=== PATIENT | female | born 1970 | race Caucasian/White ===

== ENCOUNTER 2016-11-07 05:39 | Outpatient (CLI) | payer BC ==
[~2016-11-07] VITALS: Ht 165.1 cm; Wt 83.9 kg
[~2016-11-07 05:39] MED LIST: ACDPT PO; DCS100C PO; DIPH50CA40 PO; FRS325T PO; METH4TAB PO; MV C PO; NF-ESOM40C PO; VALA100033 PO
== END 2016-11-07 13:37 ==
LOC: PREOP 05:39
PROVIDERS: ATTEND Surgery Pediatric Surgery
DX: Z01.818 Encounter for other preprocedural examination (principal); D64.9 Anemia, unspecified

== ENCOUNTER 2016-11-09 10:51 | Day surgery (SDC) | payer BC ==
[~2016-11-09] VITALS: Ht 165.1 cm; Wt 83.9 kg
[2016-11-09 11:00] VITALS: BP 124/84
[2016-11-09] MEDS ORDERED: NALOXONE 0.4 MG/ML 1 ML (NARCAN) VIAL IVP PRN (11:15)
[2016-11-09] MEDS ORDERED: HURRICAINE EXT TUBE (BENZOCAINE) XX PRN (11:15)
[2016-11-09] MEDS ORDERED: FLUMAZENIL (ROMAZICON) 0.1 MG/ML 5 ML VIAL INJ PRN (11:15)
[2016-11-09] MEDS ORDERED: NS IV 500 ML 500 ML IV ONE (11:15)
--- NOTE | 2016-11-09 11:33 | Conscious Sedation/ASA ---
Conscious Sedation Pre-Proced Time Reviewed: 11:30 ASA Class: 2 Airway Mallampati Classification: ([place] appropriate class) I. II. III, IV Lungs Heart ASA score ASA 1: a normal healthy patient ASA 2: a patient with a mild systemic disease (mid diabetes, controlled hypertension, obesity ASA 3: a patient with a severe systemic disease that limits activity (angina , COPD, prior Myocardial infarction) ASA 4: a patient with an incapacitating disease that is a constant threat to life (CHF, renal failure) ASA 5: a moribund patient not expected to survive 24 hrs. (ruptured aneurysm) ASA 6: a declared brain patient whose organs are being harvested. For emergent operations, add the letter E after the classification Grade 2 Sedation Plan: Analgesia, Amnesia, Plan communicated to team members, Discussed options with patient/fam, Discussed risks with patient/fam Note The patient is an appropriate candidate to undergo the planned procedure, sedation, and anesthesia. The patient immediately re-assessed prior to indication. KALEB FLORES MD Nov 09, 2016 11:33 am
--- NOTE | 2016-11-09 11:33 | Progress Note-Pre Operative ---
Pre-Operative Progress Note H&P Reviewed The H&P was reviewed, patient examined and no changes noted. Date H&P Reviewed: Nov 09, 2016 Time H&P Reviewed: 11:30 Pre-Operative Diagnosis: PUD, anemia KALEB FLORES MD Nov 09, 2016 11:33 am
[2016-11-09] MEDS ORDERED: ACETAMINOPHEN 325 MG TABLET/CAPLET (TYLENOL) PO PRN (11:45)
[2016-11-09] MEDS ORDERED: HYDROcodone/APAP 5 MG/325 MG (LORTAB) TAB PO PRN (11:45)
[2016-11-09] MEDS ORDERED: ONDANSETRON 4 MG/2 ML (SDV) Z0FRAN IV PRN (11:45)
[2016-11-09] MEDS ORDERED: morphine INJ 10 MG/ML 1ML (SYR OR VIAL) IV PRN (11:45)
[2016-11-09] MEDS ORDERED: MIDAZOLAM 2 MG/2 ML (VERSED) VIAL ONE ×4 (11:52→11:53)
[2016-11-09] MEDS ORDERED: fentaNYL INJECTION 100 MCG/2 ML AMP ONE ×2 (11:53)
[2016-11-09] MEDS ORDERED: HURRICAINE EXT TUBE (BENZOCAINE) ONE (11:53)
[2016-11-09] MEDS ORDERED: LIDOCAINE JELLY 2% (XYLOCAINE) 5 ML TUBE ONE (11:54)
[2016-11-09] MEDS: fentaNYL INJECTION 100 MCG/2 ML AMP IVP PRN ×4 (12:17→12:45)
[2016-11-09] MEDS: MIDAZOLAM 2 MG/2 ML (VERSED) VIAL IVP PRN ×4 (12:18→12:50)
--- NOTE | 2016-11-09 13:10 | Progress Note-Post Operative ---
Post-Operative Progess Note Surgeon (s)/Tiller Man (s) Surgeon KALEB FLORES MD Tiller Man: none Pre-Operative Diagnosis PUD, anemia Post-Operative Diagnosis reflux esophagitis(class B), small HH(1cm), moderate diffuse gastrtitis with multiple small polyps. chronic stage 2 ext and int hemorrhoids. Post-Op Procedure Note Date of Procedure: Nov 09, 2016 Name of Procedure Performed: EGD with bx. Colonoscopy. Description of the Procedure: EGD with bx. Colonoscopy. Findings of the Procedure . Anesthesia Type CS Estimated blood loss (mL): minimal Specimen(s) collected/removed GE jxn, gastric polyp. KALEB FLORES MD Nov 09, 2016 1:10 pm
--- NOTE | 2016-11-09 13:11 | Discharge Inst-Surgical ---
D/C Lap Instructions-SANDRA Follow Up PRN Activity as tolerated High Fiber Diet 25g or more per day Avoid Alcohol, Caffeine, Spicy [place] and Acid foods. Drink 64 fluid oz or more of fluids per day. Symptoms to Report: Fever over 101 degree F, Nausea/Vomiting If any problems/questions: Contact your physician or go to Emergency Room KALEB FLORES MD Nov 09, 2016 1:11 pm
[2016-11-09 13:20] VITALS: BP 103/75
[2016-11-09 13:55] VITALS: BP 113/86
[2016-11-09 14:13] VITALS: BP 113/86
--- NOTE | 2016-11-12 00:13 | PROCEDURE REPORT ---
PROCEDURE PHYSICIAN: KALEB DEGROOT DATE OF PROCEDURE: 11/09/2016 PRIMARY CARE PHYSICIAN: Dr. Diandra Puri PREOPERATIVE DIAGNOSIS: Deficiency and vitamin B12 deficiency anemia. POSTOPERATIVE DIAGNOSES: 1. Reflux esophagitis, class B. 2. Small hiatal hernia 1 cm in size. 3. Moderate gastritis with multiple, very small hyperplastic appearing polyps of the stomach, less than 2 mm in size. 4. Chronic stage II external and internal hemorrhoids. PROCEDURE: 1. EGD with biopsy. 2. Colonoscopy. SURGEON: Dr. Degroot. ANESTHESIA: Conscious sedation. ESTIMATED BLOOD LOSS: Minimal. FINDINGS: EGD: 1. Reflux esophagitis, class B. 2. Small hiatal hernia 1 cm in size. 3. Moderate severity gastritis with multiple small gastric polyps, each less than 2 mm in size which may indicate a form of atrophic gastritis and vitamin B12 deficiency. 4. The pylorus and duodenum appeared normal. COLONOSCOPY: 1. Chronic stage II external and internal hemorrhoids, not actively edematous nor inflamed and no bleeding. 2. The remainder of the rectum and colon were normal. There were no mucosal inflammatory changes, as well as no active bleeding. DISPOSITION: The patient tolerated the procedure well. Ms. Kaylynn Eller is a 46-year-old female referred over to us for iron deficiency, as well as vitamin B12 deficiency anemia. She reports that she has had this issue for the past 4 years. Lab work was done 10/19/2016, which showed a hemoglobin of 9.8 and a hematocrit of 33. She has had multiple laboratory studies which have shown decreased iron as well as vitamin B12. Upon further questioning, she reports a long-standing history of constipation with hard, well-formed stools. She does not report any red blood per rectum nor any dark tarry stools. She does have a history of peptic ulcer disease and gastroesophageal reflux disease and has been on Nexium; however, she states that her symptoms have worsened in the past year. PROCEDURE: The patient was brought to the endoscopy suite, laid in the left lateral decubitus position with the head slightly elevated. After adequate IV pain and sedative medications and conscious sedation anesthesia, the mouthpiece was applied. The endoscope was placed in the mouth, visualizing the pharynx and hypopharyngeal region. Vocal cords, epiglottis and vallecula identified and appeared to be normal. The endoscope was then gently intubated into the esophageal opening and the esophagus insufflated. The endoscope was then advanced through the first, second, and 3rd portions of the esophagus. At the level of the GE junction, a reflux esophagitis, class B identified. There were no ulcers or strictures identified in this region. A biopsy was taken with forceps with visualization of good hemostasis. The endoscope was then advanced into the stomach and endoscope retroflexed visualizing a small hiatal hernia, approximately 1 cm in size. There was a moderate severity gastritis. There were multiple small gastric polyps each less than 2 mm in size. This may indicate a form of atrophic gastritis. A biopsy was taken of stomach body polyp with forceps with visualization of good hemostasis. The endoscope was then advanced through the pylorus and first and second portions of the duodenum which appeared normal with no distal obstructions. The endoscope was then slowly withdrawn while taking a second look and suctioning of residual air with no additional findings. The patient tolerated this portion the procedure well. We will recommend medical management with a proper lifestyle and diet accommodation including smaller, more frequent meals, avoidance of eating at night, as well as head elevation while laying supine. She also needs to avoid caffeinated beverages, spicy, greasy and acidic foods. The importance of weight management were also explained to the patient. Even though she does have symptoms, a trial of discontinuing acid reduction pharmaceutical medical therapy may improve her symptoms along with medical management. Under the same conscious sedation anesthesia, we then proceeded with the colonoscopy portion of the procedure. A digital rectal examination was performed, which revealed chronic, stage II external and internal hemorrhoids, not actively edematous nor inflamed and no bleeding. Normal sphincter tone was felt and there were no palpable masses. The endoscope was then intubated into the anus and the rectum gently insufflated. The endoscope was then advanced through the valves of Flynn of the rectum with no polyps or any neoplasms identified. There were no mucosal inflammatory changes to indicate any active colitis. The endoscope was then advanced through the sigmoid colon where no diverticula identified. We then proceeded through the remainder of the descending, transverse, and ascending colon of the cecum. These segments were normal as well. There were no polyps or any neoplasms, as well as no mucosal inflammatory changes or any active bleeding sites identified. The endoscope was then slowly withdrawn while taking a second look and suctioning of residual air with no additional findings. The patient tolerated the procedure well. We will have her continue with medical management with a high fiber diet with at least 25 grams of fiber per day, as well as at least 64 fluid ounces of water daily to promote soft stools on a daily basis. Job ID: [id number] Dictated Date: 11/09/2016 13:06:56 Senior Care Specialist Date: 11/12/2016 00:03:51 / cem
--- OUTSIDE RECORDS SUMMARY | 2016-12-02 08:08 | XMS REPORT ---
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
--- OUTSIDE RECORDS SUMMARY | 2016-12-02 08:08 | XMS REPORT ---
Author LOREN Mack eClinicalWorks Address Unknown Phone Unavailable Care Team Providers Care Rand Butting Machine Operator Name Role Phone LOREN MARCOS Unavailable Allergies [...] patient &/family, 30 minutes, established patient CPT-4 46168 Apr 09, 2016 Results No Known Results Summary Purpose eClinicalWorks Submission
--- OUTSIDE RECORDS SUMMARY | 2016-12-02 08:09 | XMS REPORT | Continuity of Care Document ---
Author Author [facility] Address Unknown Phone Unavailable Allergies Active Description Code Type Severity Reaction Onset Reported/Identified Relationship to Patient Clinical Status Yes No Known Drug Allergies [id number] Drug Allergy Mild N/A 04/30/2008 Medications Problems Date Dx Coded Attending Type Code Diagnosis Diagnosed By 09/28/2010 Ot 285.9 ANEMIA NOS 09/28/2010 Ot 354.0 CARPAL TUNNEL SYNDROME 09/28/2010 Ot 616.10 VAGINITIS NOS 09/28/2010 Ot 646.61 INFECTION-DELIVERED 09/28/2010 Ot 648.21 ANEMIA-DELIVERED 09/28/2010 Ot 648.91 OTH CURR COND-DELIVERED 09/28/2010 Ot 654.21 PREV DELIVRY W/ OR W/O MENT ANT 09/28/2010 Ot 659.61 ELD MULTIGRAVIDA DEL W MENTION OF ANTEPA 09/28/2010 Ot V27.0 DELIVER-SINGLE LIVEBORN 03/07/2012 309.28 AD ADJ D/O W ANX DEP MOOD 03/07/2012 309.28 AD ADJ D/O W ANX DEP MOOD 03/07/2012 VARINDER DUMAS DO 309.28 AD ADJ D/O W ANX DEP MOOD 03/07/2012 VARINDER DUMAS DO 309.28 AD ADJ D/O W ANX DEP MOOD 05/17/2012 V04.81 FLU DX (3 YRS AND ABOVE, IM) 05/17/2012 V04.81 FLU DX (3 YRS AND ABOVE, IM) 05/17/2012 VARINDER DUMAS DO V04.81 FLU DX (3 YRS AND ABOVE, IM) 05/17/2012 VARINDER DUMAS DO V04.81 FLU DX (3 YRS AND ABOVE, IM) 12/20/2013 BRINDA KHANNA MD Ot 351.0 [place] 12/20/2013 BRINDA KHANNA MD Ot 782.0 SKIN SENSATION DISTURB 06/29/2014 Ot V76.12 06/29/2014 Ot 649.63 06/29/2014 Ot 654.23 06/29/2014 Ot V72.83 06/29/2014 Ot V74.8 06/29/2014 Ot 782.0 06/29/2014 Ot 784.0 06/29/2014 Ot 793.82 06/29/2014 Ot V76.12 06/29/2014 Ot 611.0 06/29/2014 Ot 793.80 06/29/2014 Ot V67.9 06/29/2014 JACKIE NARAYAN DO Ot 793.89 06/29/2014 Ot 341.8 06/29/2014 Ot 346.11 06/29/2014 Ot 348.0 06/29/2014 JACKIE NARAYAN DO Ot V76.12 11/29/2014 CA FIELDS Ot V76.12 12/31/2014 CA FIELDS Ot V76.12 12/31/2014 CA FIELDS Ot 795.09 11/25/2015 Ot 654.23 PREV DELIVERY, ANTEPARTUM COND 11/25/2015 Ot V72.83 EXAM PRE-OPERATIVE NEC 11/25/2015 Ot V74.8 SCREEN-BACTERIAL DIS NEC 11/25/2015 Ot 782.0 SKIN SENSATION DISTURB 11/25/2015 Ot 784.0 HEADACHE 11/25/2015 Ot 793.82 INCONCLUSIVE MAMMOGRAM 11/25/2015 Ot V76.12 OTH SCREEN MAMMO-MALIGN NEOPLASM OF LUCY 11/25/2015 Ot 611.0 INFLAM DISEASE OF BREAST 11/25/2015 Ot 793.80 UNSPEC ABNORMAL MAMMOGRAM 11/25/2015 Ot V67.9 FOLLOW-UP EXAM NOS 11/25/2015 JACKIE NARAYAN DO Ot 793.89 OTH (ABN) FINDINGS ON RADIOLOGICAL EXAMI 11/25/2015 Ot 341.8 BIAS MACHINE OPERATOR DEMYELINATION NEC 11/25/2015 Ot 346.11 MGRN W/OUT AURA W INTRACTABLE MGRN W/O S 11/25/2015 Ot 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 11/25/2015 JACKIE NARAYAN DO Ot V76.12 OTH SCREEN MAMMO-MALIGN NEOPLASM OF LUCY 11/25/2015 CA FIELDS Ot V76.12 OTH SCREEN MAMMO-MALIGN NEOPLASM OF LUCY 11/25/2015 CA FIELDS Ot 795.09 OTHER ABNORMAL PAPANICOLAOU SMEAR OF CER 11/28/2015 NARAYANJACKIE Lau DO Ot Z12.31 ENCNTR SCREEN MAMMOGRAM FOR MALIGNANT NE 12/08/2015 NARAYANJACKIE Lau DO Ot Z12.31 ENCNTR SCREEN MAMMOGRAM FOR MALIGNANT NE 10/11/2016 Ot 782.0 SKIN SENSATION DISTURB 10/11/2016 Ot 784.0 HEADACHE 10/11/2016 Ot 793.82 INCONCLUSIVE MAMMOGRAM 10/11/2016 Ot V76.12 OTH SCREEN MAMMO-MALIGN NEOPLASM OF LUCY 10/11/2016 Ot 611.0 INFLAM DISEASE OF BREAST 10/11/2016 Ot 793.80 UNSPEC ABNORMAL MAMMOGRAM 10/11/2016 Ot V67.9 FOLLOW-UP EXAM NOS 10/11/2016 JACKIE NARAYAN DO Ot 793.89 OTH (ABN) FINDINGS ON RADIOLOGICAL EXAMI 10/11/2016 Ot 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 MACHINE OPERATOR DEMYELINATION NEC 10/11/2016 Ot 346.11 MGRN W/OUT AURA W INTRACTABLE MGRN W/O S 10/11/2016 Ot 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 10/11/2016 JACKIE NARAYAN DO Ot V76.12 OTH SCREEN MAMMO-MALIGN NEOPLASM OF LUCY 10/11/2016 CA FIELDS Ot V76.12 OTH SCREEN MAMMO-MALIGN NEOPLASM OF LUCY 10/11/2016 CA FIELDS Ot 795.09 OTHER ABNORMAL PAPANICOLAOU SMEAR OF CER 10/11/2016 JACKIE NARAYAN DO Ot Z12.31 ENCNTR SCREEN MAMMOGRAM FOR MALIGNANT NE 11/07/2016 KALEB FLORES MD Ot D64.9 ANEMIA, UNSPECIFIED 11/07/2016 KALEB FLORES MD Ot Z01.818 ENCOUNTER FOR OTHER PREPROCEDURAL EXAMIN 11/07/2016 KALEB FLORES MD Ot D64.9 ANEMIA, UNSPECIFIED 11/07/2016 KALEB FLORES MD Ot Z01.818 ENCOUNTER FOR OTHER PREPROCEDURAL EXAMIN 11/09/2016 Ot 782.0 SKIN SENSATION DISTURB 11/09/2016 Ot 784.0 HEADACHE 11/09/2016 Ot 793.82 INCONCLUSIVE MAMMOGRAM 11/09/2016 Ot V76.12 OTH SCREEN MAMMO-MALIGN NEOPLASM OF LUCY 11/09/2016 Ot 611.0 INFLAM DISEASE OF BREAST 11/09/2016 Ot 793.80 UNSPEC ABNORMAL MAMMOGRAM 11/09/2016 Ot V67.9 FOLLOW-UP EXAM NOS 11/09/2016 JACKIE NARAYAN DO Ot 793.89 OTH (ABN) FINDINGS ON RADIOLOGICAL EXAMI 11/09/2016 Ot 341.8 BIAS MACHINE OPERATOR DEMYELINATION NEC 11/09/2016 Ot 346.11 MGRN W/OUT AURA W INTRACTABLE MGRN W/O S 11/09/2016 Ot 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 11/09/2016 JACKIE NARAYAN DO Ot V76.12 OTH SCREEN MAMMO-MALIGN NEOPLASM OF LUCY 11/09/2016 DONNIE CACee REYES Ot V76.12 OTH SCREEN MAMMO-MALIGN NEOPLASM OF LUCY 11/09/2016 CA FIELDS HAIR OR BEAUTY SALON ASSISTANT Ot 795.09 OTHER ABNORMAL PAPANICOLAOU SMEAR OF CER 11/09/2016 JAKCIE NARAYAN DO Ot Z12.31 ENCNTR SCREEN MAMMOGRAM FOR MALIGNANT NE 11/09/2016 ROYA BUSTILLOS MD Ot D50.9 IRON DEFICIENCY ANEMIA, UNSPECIFIED 11/09/2016 ROYA BUSTILLOS MD Ot E66.9 OBESITY, UNSPECIFIED 11/09/2016 ROYA BUSTILLOS MD Ot K90.9 INTESTINAL MALABSORPTION, UNSPECIFIED 11/09/2016 ROYA BUSTILLOS MD Ot Z68.31 BODY MASS INDEX (BMI) 31.0-31.9, ADULT 11/09/2016 KALEB FLORES MD, Ot D50.9 IRON DEFICIENCY ANEMIA, UNSPECIFIED 11/09/2016 KALEB FLORES MD Ot D51.3 OTHER DIETARY VITAMIN B12 DEFICIENCY ANE 11/09/2016 KALEB FLORES MD Ot K21.0 GASTRO-ESOPHAGEAL REFLUX DISEASE WITH ES 11/09/2016 KALEB FLORES MD Ot K29.70 GASTRITIS, UNSPECIFIED, WITHOUT BLEEDING 11/09/2016 KALEB FLORES MD Ot K31.7 POLYP OF STOMACH AND DUODENUM 11/09/2016 KALEB LFORES MD Ot K44.9 DIAPHRAGMATIC HERNIA WITHOUT OBSTRUCTION 11/09/2016 KALEB FLORES MD Ot K59.00 CONSTIPATION, UNSPECIFIED 11/09/2016 KALEB FLORES MD, Ot K64.1 SECOND DEGREE HEMORRHOIDS Procedures Code Description Performed By Performed On 74.1 09/26/2010 16919 INDIV PSYTX 45/50 MIN 07/11/2012 26106 PSYTX PT&/FAMILY 45 MINUTES 10/31/2012 Results Test Result Range Urine beta human chorionic gonadotropin (hCG) measurement - 11/09/16 11:00 Urine beta human chorionic gonadotropin (hCG) measurement NEGATIVE NEGATIVE Encounters ACCT No. Visit Date/Time Discharge Status Pt. Type Provider Facility Loc./Unit Complaint [id number] 05/13/2014 18:28:00 05/13/2014 23: 59:59 CLS Outpatient VARINDER DUMAS DO [id number] 05/09/2013 08:59:00 05/09/2013 23: 59:59 CLS Outpatient VARINDER DUMAS DO [id number] 10/31/2012 08:56:00 10/31/2012 23: 59:59 CLS Outpatient [id number] 07/11/2012 09:57:00 07/11/2012 23: 59:59 CLS Outpatient
--- OUTSIDE RECORDS SUMMARY | 2016-12-02 08:09 | XMS REPORT ---
Author Author LOREN MARCOS eClinicalWorks Address Unknown Phone Unavailable Care Team Providers Care Examination Scorer Name Role Phone LOREN MARCOS CP Unavailable Allergies No Known Allergies Problems Problem Type Condition Code Onset Dates Condition Status Problem Adjustment disorder with mixed anxiety and depressed mood 309.28 Active Assessment Adjustment disorder with mixed anxiety and depressed mood 309.28 Active Problem Need for prophylactic vaccination and inoculation, Influenza V04.81 Active Medications No Known Medications Procedures Procedure Coding System Code Date Psych diagnostic evaluation, established patient CPT-4 11791 Jul 05, 2015 Results No Known Results Summary Purpose ShotlstinicalCognitum Submission
== END 2016-11-09 14:05 | disposition home or self-care (01) ==
LOC: DELPENDDIS → ENDO 10:51
PROVIDERS: ATTEND Surgery Pediatric Surgery
DX: K21.0 Gastro-esophageal reflux disease with esophagitis (principal); K44.9 Diaphragmatic hernia without obstruction or gangrene; K29.70 Gastritis, unspecified, without bleeding; K31.7 Polyp of stomach and duodenum; K64.1 Second degree hemorrhoids; K59.00 Constipation, unspecified; D50.9 Iron deficiency anemia, unspecified; D51.3 Other dietary vitamin B12 deficiency anemia
CPT/HCPCS: 84703; 88305

== ENCOUNTER 2016-11-16 10:21 | Outpatient (RCR) | payer BC ==
--- OUTSIDE RECORDS SUMMARY | 2016-10-11 11:40 | XMS REPORT ---
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
[2016-10-11 12:04] LABS: BASOPHILS % (AUTO) 0 % (0-10); EOSINOPHILS # (AUTO) 0.1 10^3/uL (0.0-0.3); EOSINOPHILS % (AUTO) 1 % (0-10); LYMPHOCYTES # (AUTO) 1.3 X 10^3 (1.0-4.0); LYMPHOCYTES % (AUTO) 28 % (12-44); MEAN CORPUSCULAR HEMOGLOBIN 21 PG (25-34); MEAN CORPUSCULAR HGB CONC 31 G/DL (32-36); MEAN CORPUSCULAR VOLUME 67 FL (80-99); MEAN PLATELET VOLUME 9.7 FL (7.4-10.4); MONOCYTES # (AUTO) 0.4 X 10^3 (0.0-1.0); MONOCYTES % (AUTO) 8 % (0-12); NEUTROPHILS # (AUTO) 2.9 X 10^3 (1.8-7.8); NEUTROPHILS % (AUTO) 63 % (42-75); PLATELET COUNT 294 10^3/uL (130-400); RED BLOOD COUNT 4.74 10^6/uL (4.35-5.85); RED CELL DISTRIBUTION WIDTH 18.9 % (10.0-14.5); WHITE BLOOD COUNT 4.6 10^3/uL (4.3-11.0)
[2016-10-11 16:36] LABS: %SAT TOTAL IRON BINDING CAPIC 4 % (15-50); TIBC 446 ug/dL (280-380)
[2016-10-12 08:03] LABS: UIBC 428 ug/dL (55-450)
[2016-10-19 11:38] LABS: BASOPHILS % (AUTO) 1 % (0-10); EOSINOPHILS # (AUTO) 0.1 10^3/uL (0.0-0.3); EOSINOPHILS % (AUTO) 1 % (0-10); LYMPHOCYTES # (AUTO) 1.7 X 10^3 (1.0-4.0); LYMPHOCYTES % (AUTO) 30 % (12-44); MEAN CORPUSCULAR HEMOGLOBIN 20 PG (25-34); MEAN CORPUSCULAR HGB CONC 30 G/DL (32-36); MEAN CORPUSCULAR VOLUME 67 FL (80-99); MEAN PLATELET VOLUME 10.3 FL (7.4-10.4); MONOCYTES # (AUTO) 0.5 X 10^3 (0.0-1.0); MONOCYTES % (AUTO) 9 % (0-12); NEUTROPHILS # (AUTO) 3.4 X 10^3 (1.8-7.8); NEUTROPHILS % (AUTO) 59 % (42-75); PLATELET COUNT 254 10^3/uL (130-400); RED BLOOD COUNT 4.82 10^6/uL (4.35-5.85); RED CELL DISTRIBUTION WIDTH 18.6 % (10.0-14.5); WHITE BLOOD COUNT 5.7 10^3/uL (4.3-11.0)
[2016-10-26 09:56] LABS: BILIRUBIN,URINE NEGATIVE (NEGATIVE); KETONES,URINE NEGATIVE (NEGATIVE); LEUKOCYTE ESTERASE ,URINE NEGATIVE (NEGATIVE); NITRITE,URINE NEGATIVE (NEGATIVE); PH,URINE 8 (5-9); PROTEIN,URINE NEGATIVE (NEGATIVE); UROBILINOGEN,URINE NORMAL (NORMAL)
[2016-11-13 10:15] LABS: HEMOGLOBIN ELECTROPHERESIS L-17-0002914
[~2016-11-16 10:21] MED LIST changes: +FERRIC CARBOXYMALTOSE (CANCER) 750 MG in NS (IVPB) CANCER CENTER 250 ML IV SCH; +FERRIC CARBOXYMALTOSE 750 MG/15 ML (CANCER CTR) IV SCH
[2016-11-16 10:40] LABS: BASOPHILS # (AUTO) 0.1 10^3/uL (0.0-0.1); BASOPHILS % (AUTO) 1 % (0-10); EOSINOPHILS # (AUTO) 0.1 10^3/uL (0.0-0.3); EOSINOPHILS % (AUTO) 1 % (0-10); LYMPHOCYTES # (AUTO) 1.4 X 10^3 (1.0-4.0); LYMPHOCYTES % (AUTO) 28 % (12-44); MEAN CORPUSCULAR HEMOGLOBIN 26 PG (25-34); MEAN CORPUSCULAR HGB CONC 33 G/DL (32-36); MEAN CORPUSCULAR VOLUME 79 FL (80-99); MONOCYTES # (AUTO) 0.4 X 10^3 (0.0-1.0); MONOCYTES % (AUTO) 8 % (0-12); NEUTROPHILS # (AUTO) 3.2 X 10^3 (1.8-7.8); NEUTROPHILS % (AUTO) 62 % (42-75); PLATELET COUNT 179 10^3/uL (130-400); RED BLOOD COUNT 5.24 10^6/uL (4.35-5.85); WHITE BLOOD COUNT 5.1 10^3/uL (4.3-11.0)
[2016-11-16 11:00] LABS: ALANINE AMINOTRANSFERASE 21 U/L (0-55); ALBUMIN 4.2 G/DL (3.2-4.5); ANION GAP 7 MMOL/L (5-14); ASPARTATE AMINO TRANSFERASE 14 U/L (5-34); BILIRUBIN,TOTAL 1.3 MG/DL (0.1-1.0); BLOOD UREA NITROGEN 9 MG/DL (7-18); BUN/CREATININE RATIO 12; CALCIUM 9.3 MG/DL (8.5-10.1); CARBON DIOXIDE 25 MMOL/L (21-32); CHLORIDE 109 MMOL/L (98-107); CREATININE SERUM 0.73 MG/DL (0.60-1.30); GFR ESTIMATED > 60; GLUCOSE 83 MG/DL (70-105); POTASSIUM 4.3 MMOL/L (3.6-5.0); SODIUM 141 MMOL/L (135-145); TOTAL PROTEIN 6.7 G/DL (6.4-8.2)
[2016-11-16 11:22] LABS: THYROID STIMULATING HORMONE 1.07 UIU/ML (0.35-4.94)
[2016-11-16 13:34] LABS: BILIRUBIN,DIRECT 0.4 MG/DL (0.0-0.3)
== END 2017-01-09 | disposition home or self-care (01) ==
LOC: ONC 10:21
PROVIDERS: ATTEND Internal Medicine Hematology & Oncology
DX: D50.9 Iron deficiency anemia, unspecified (principal); K90.9 Intestinal malabsorption, unspecified; E66.9 Obesity, unspecified; Z68.31 Body mass index [BMI] 31.0-31.9, adult
CPT/HCPCS: 36415; 80053; 81000; 82248; 82274; 82728; 83020; 83540; 84439; 84443; 85025; 96365; 99213; 99214

== ENCOUNTER → 2017-01-18 | Outpatient (CLI) | payer BC ==
[~2017-01-18] MED LIST changes: -FERRIC CARBOXYMALTOSE (CANCER) 750 MG in NS (IVPB) CANCER CENTER 250 ML IV SCH; -FERRIC CARBOXYMALTOSE 750 MG/15 ML (CANCER CTR) IV SCH
--- NOTE | 2017-01-21 13:39 | Diagnostic Imaging Report ---
Bilateral screening mammogram. The current study was also evaluated with a Computer Aided Detection (CAD) system. INDICATION: Screening. No current complaints stated on the questionnaire. COMPARISON: 11/25/15 FINDINGS: The breasts are composed of scattered fibroglandular densities. There are scattered benign-appearing calcifications. Allowing for technique and positional differences, no suspicious change is seen. IMPRESSION: No significant change. ACR BI-RADS Category 2: Benign findings. Result letter will be mailed to the patient. Note: At least 10% of breast cancer is not imaged by mammography. Dictated by: Dictated on workstation # [id number]
== END | disposition home or self-care (01) ==
LOC: RAD 10:34
PROVIDERS: ATTEND Obstetrics & Gynecology
DX: Z12.31 Encounter for screening mammogram for malignant neoplasm of breast (principal)
CPT/HCPCS: 77067

== ENCOUNTER 2017-02-21 08:51 | Outpatient (RCR) | payer BC ==
[2017-02-15 09:56] LABS: BASOPHILS % (AUTO) 1 % (0-10); EOSINOPHILS # (AUTO) 0.1 10^3/uL (0.0-0.3); EOSINOPHILS % (AUTO) 2 % (0-10); LYMPHOCYTES # (AUTO) 1.8 X 10^3 (1.0-4.0); LYMPHOCYTES % (AUTO) 31 % (12-44); MEAN CORPUSCULAR HEMOGLOBIN 31 PG (25-34); MEAN CORPUSCULAR HGB CONC 34 G/DL (32-36); MEAN CORPUSCULAR VOLUME 89 FL (80-99); MEAN PLATELET VOLUME 9.7 FL (7.4-10.4); MONOCYTES # (AUTO) 0.4 X 10^3 (0.0-1.0); MONOCYTES % (AUTO) 8 % (0-12); NEUTROPHILS # (AUTO) 3.5 X 10^3 (1.8-7.8); NEUTROPHILS % (AUTO) 60 % (42-75); PLATELET COUNT 170 10^3/uL (130-400); RED BLOOD COUNT 4.81 10^6/uL (4.35-5.85); RED CELL DISTRIBUTION WIDTH 14.8 % (10.0-14.5); WHITE BLOOD COUNT 5.8 10^3/uL (4.3-11.0)
[2017-02-15 10:17] LABS: ALANINE AMINOTRANSFERASE 24 U/L (0-55); ALBUMIN 4.3 GM/DL (3.2-4.5); ANION GAP 10 MMOL/L (5-14); ASPARTATE AMINO TRANSFERASE 18 U/L (5-34); BILIRUBIN,TOTAL 1.7 MG/DL (0.1-1.0); BLOOD UREA NITROGEN 11 MG/DL (7-18); BUN/CREATININE RATIO 14; CALCIUM 9.5 MG/DL (8.5-10.1); CARBON DIOXIDE 21 MMOL/L (21-32); CHLORIDE 106 MMOL/L (98-107); CREATININE SERUM 0.78 MG/DL (0.60-1.30); GFR ESTIMATED > 60; GLUCOSE 109 MG/DL (70-105); POTASSIUM 4.5 MMOL/L (3.6-5.0); SODIUM 137 MMOL/L (135-145); TOTAL PROTEIN 7.1 GM/DL (6.4-8.2)
== END 2017-05-11 | disposition home or self-care (01) ==
LOC: ONC 08:51
PROVIDERS: ATTEND Internal Medicine Hematology & Oncology
DX: D50.9 Iron deficiency anemia, unspecified; Z68.31 Body mass index [BMI] 31.0-31.9, adult; E66.9 Obesity, unspecified; K90.9 Intestinal malabsorption, unspecified
CPT/HCPCS: 36415; 80053; 82728; 83540; 85025; 99213

== ENCOUNTER 2017-06-26 08:54 | Outpatient (RCR) | payer BC ==
[2017-06-12 12:55] LABS: ABSOLUTE RETIC # 46 10e9/L (24-90); BASOPHILS % (AUTO) 1 % (0-10); EOSINOPHILS # (AUTO) 0.1 10^3/uL (0.0-0.3); EOSINOPHILS % (AUTO) 2 % (0-10); HEMATOCRIT 41 % (35-52); HEMOGLOBIN 14.3 G/DL (11.5-16.0); LYMPHOCYTES # (AUTO) 1.9 X 10^3 (1.0-4.0); LYMPHOCYTES % (AUTO) 28 % (12-44); MEAN CORPUSCULAR HEMOGLOBIN 31 PG (25-34); MEAN CORPUSCULAR HGB CONC 35 G/DL (32-36); MEAN CORPUSCULAR VOLUME 89 FL (80-99); MEAN PLATELET VOLUME 9.7 FL (7.4-10.4); MONOCYTES # (AUTO) 0.5 X 10^3 (0.0-1.0); MONOCYTES % (AUTO) 7 % (0-12); NEUTROPHILS # (AUTO) 4.2 X 10^3 (1.8-7.8); NEUTROPHILS % (AUTO) 63 % (42-75); PLATELET COUNT 214 10^3/uL (130-400); RETICULOCYTE % 0.99 % (0.50-2.40); WHITE BLOOD COUNT 6.7 10^3/uL (4.3-11.0)
[2017-06-12 13:14] LABS: ALANINE AMINOTRANSFERASE 17 U/L (0-55); ALBUMIN 4.2 GM/DL (3.2-4.5); ALKALINE PHOSPHATASE 74 U/L (40-136); BILIRUBIN,TOTAL 1.4 MG/DL (0.1-1.0); BUN/CREATININE RATIO 20; CALCIUM 9.4 MG/DL (8.5-10.1); CARBON DIOXIDE 22 MMOL/L (21-32); CHLORIDE 104 MMOL/L (98-107); GFR ESTIMATED > 60; GLUCOSE 84 MG/DL (70-105); POTASSIUM 3.7 MMOL/L (3.6-5.0); SODIUM 136 MMOL/L (135-145); TOTAL PROTEIN 6.7 GM/DL (6.4-8.2)
[2017-07-12] MEDS ORDERED: FAMO40TA6 PO (11:19)
== END 2017-09-10 | disposition home or self-care (01) ==
LOC: ONC 08:54
PROVIDERS: ATTEND Internal Medicine Hematology & Oncology
DX: D50.9 Iron deficiency anemia, unspecified (principal); K90.9 Intestinal malabsorption, unspecified; E66.9 Obesity, unspecified; Z68.31 Body mass index [BMI] 31.0-31.9, adult
CPT/HCPCS: 36415; 80053; 82728; 85025; 85045; 99213

== ENCOUNTER 2017-07-12 05:32 | Outpatient (CLI) | payer BC ==
[~2017-07-12] VITALS: Ht 165.1 cm; Wt 83.9 kg
[2017-07-12] MEDS ORDERED: FAMO40TA6 PO (11:19)
== END 2017-07-12 11:23 ==
LOC: PREOP 05:32
PROVIDERS: ATTEND Surgery
DX: Z01.818 Encounter for other preprocedural examination (principal); K21.9 Gastro-esophageal reflux disease without esophagitis

== ENCOUNTER 2017-07-19 09:43 | Day surgery (SDC) | payer BC ==
[~2017-07-19] VITALS: Ht 165.1 cm; Wt 83.9 kg
[~2017-07-19 09:43] MED LIST changes: +FAMO40TA6 PO
[2017-07-19] MEDS ORDERED: NS IV 500 ML 500 ML IV PRN (09:56)
[2017-07-19 10:00] VITALS: BP 121/89
[2017-07-19] MEDS ORDERED: LIDOCAINE JELLY 2% (XYLOCAINE) 5 ML TUBE MM PRN (10:00)
[2017-07-19] MEDS ORDERED: HURRICAINE EXT TUBE (BENZOCAINE) XX PRN (10:00)
--- OUTSIDE RECORDS SUMMARY | 2017-07-19 10:06 | XMS REPORT ---
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
--- OUTSIDE RECORDS SUMMARY | 2017-07-19 10:06 | XMS REPORT ---
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
--- OUTSIDE RECORDS SUMMARY | 2017-07-19 10:06 | XMS REPORT ---
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
[2017-07-19] MEDS ORDERED: NS IV 500 ML 500 ML ONE (10:08)
[2017-07-19] MEDS ORDERED: fentaNYL INJECTION 100 MCG/2 ML AMP ONE (10:33)
[2017-07-19] MEDS ORDERED: MIDAZOLAM 2 MG/2 ML (VERSED) VIAL ONE ×4 (10:33→10:53)
[2017-07-19] MEDS ORDERED: LIDOCAINE JELLY 2% (XYLOCAINE) 5 ML TUBE ONE (10:34)
[2017-07-19] MEDS ORDERED: HURRICAINE EXT TUBE (BENZOCAINE) ONE (10:34)
[2017-07-19] MEDS: fentaNYL INJECTION 100 MCG/2 ML AMP IVP PRN ×2 (10:35→10:50)
[2017-07-19] MEDS: MIDAZOLAM 2 MG/2 ML (VERSED) VIAL IVP PRN ×4 (10:40→10:52)
--- NOTE | 2017-07-19 11:14 | Conscious Sedation/ASA ---
Conscious Sedation Pre-Proced Time Reviewed: 10:30 ASA Class: 2 Airway Mallampati Classification: ([place] appropriate class) I. II. III, IV Lungs Heart ASA score ASA 1: a normal healthy patient ASA 2: a patient with a mild systemic disease (mid diabetes, controlled hypertension, obesity ASA 3: a patient with a severe systemic disease that limits activity (angina , COPD, prior Myocardial infarction) ASA 4: a patient with an incapacitating disease that is a constant threat to life (CHF, renal failure) ASA 5: a moribund patient not expected to survive 24 hrs. (ruptured aneurysm) ASA 6: a declared brain patient whose organs are being harvested. For emergent operations, add the letter E after the classification Grade 3 Sedation Plan: Analgesia, Amnesia, Plan communicated to team members, Discussed options with patient/fam, Discussed risks with patient/fam Note The patient is an appropriate candidate to undergo the planned procedure, sedation, and anesthesia. The patient immediately re-assessed prior to indication. KALEB FLORES MD Jul 19, 2017 11:14 am
--- NOTE | 2017-07-19 11:15 | Progress Note-Pre Operative ---
Pre-Operative Progress Note H&P Reviewed The H&P was reviewed, patient examined and no changes noted. Date Seen by Provider: Jul 19, 2017 Time Seen by Provider: 10:30 Date H&P Reviewed: Jul 19, 2017 Time H&P Reviewed: 10:30 Pre-Operative Diagnosis: iron and vit B12 deficiency anemia KALEB FLORES MD Jul 19, 2017 11:15 am
--- NOTE | 2017-07-19 11:17 | Progress Note-Post Operative ---
Post-Operative Progess Note Surgeon (s)/Traffic Control Supervisor (s) Surgeon KALEB FLORES MD Traffic Control Supervisor: none Pre-Operative Diagnosis iron and vit B12 deficiency anemia Post-Operative Diagnosis reflux esophagitis(class B-C), small HH(2cm), moderate gastritis, no polyps. Procedure & Operative Findings Date of Procedure 07/19/17 Procedure Performed/Findings EGD with bx. Anesthesia Type CS Estimated Blood Loss Estimated blood loss (mL): minimal Specimens/Packing Specimens Removed GE jxn, antrum KALEB FLORES MD Jul 19, 2017 11:17 am
[2017-07-19] MEDS ORDERED: HYDROcodone/APAP 5 MG/325 MG (LORTAB) TAB PO PRN (11:30)
[2017-07-19] MEDS ORDERED: ONDANSETRON 4 MG/2 ML (SDV) Z0FRAN IV PRN (11:30)
[2017-07-19] MEDS ORDERED: ACETAMINOPHEN 325 MG TABLET/CAPLET (TYLENOL) PO PRN (11:30)
[2017-07-19] MEDS ORDERED: morphine INJ 10 MG/ML 1ML (SYR OR VIAL) IV PRN (11:30)
[2017-07-19 11:35] VITALS: BP 125/86
[2017-07-19 12:06] VITALS: BP 127/89
--- NOTE | 2017-07-19 12:07 | Discharge Inst-Surgical ---
D/C Lap Instructions-SANDRA Follow Up PRN Activity as tolerated High Fiber Diet 25g or more per day Avoid Alcohol, Caffeine, Spicy [place] and Acid foods. Drink 64 fluid oz or more of fluids per day. Symptoms to Report: Fever over 101 degree F, Nausea/Vomiting If any problems/questions: Contact your physician or go to Emergency Room KALEB FLORES MD Jul 19, 2017 12:07 pm
[2017-07-19 12:09] VITALS: BP 127/89
--- NOTE | 2017-07-19 17:14 | OPERATIVE REPORT ---
DATE OF SERVICE: 07/19/2017 ATTENDING PRIMARY CARE PHYSICIAN: Diandra Puri D.O. PREOPERATIVE DIAGNOSIS: Iron and vitamin B12 deficiency anemia, history of atrophic gastritis. POSTOPERATIVE DIAGNOSIS: Reflux esophagitis between class B and C, small hiatal hernia approximately 2 cm in size, moderate severity gastritis. PROCEDURE: EGD with biopsy. SURGEON: Dr. Flores. ANESTHESIA: Conscious sedation. ESTIMATED BLOOD LOSS: Minimal. FINDINGS: Reflux esophagitis between class B and C. There were no ulcers or strictures identified in this region. There was a hiatal hernia which was approximately 2 cm in size. Moderate severity gastritis with no formal ulcers, polyps or any neoplasms identified. Pylorus and duodenum appeared normal. DISPOSITION: The patient tolerated the procedure well. INDICATIONS: The patient is a 47-year-old female known to us. She has a history of iron deficiency as well as vitamin B12 deficiency anemia. She had issues with peptic ulcer disease and gastroesophageal reflux disease for the past 5 years and has been on PPI acid reducers for that time frame. She was found to have a hemoglobin of 9.8 and she did have workup performed, which did show iron as well as vitamin B12 deficiency. She underwent an EGD which did show multiple gastric polyps, small gastric polyps as well as clinical atrophic gastritis. Her PPI acid reducers were discontinued. She was placed on cimetidine 20 mg b.i.d. and she reports that she is receiving vitamin B12 and iron which have improved. DESCRIPTION OF PROCEDURE: The patient was brought to the upper endoscopy suite, laid in the left lateral decubitus position. After adequate IV pain and sedative medications and conscious sedation anesthesia, the mouthpiece was applied. The endoscope was placed in the mouth, visualizing the pharynx and hypopharyngeal region. Vocal cords, epiglottis and vallecula identified and appeared to be normal. The endoscope was then gently intubated at the esophageal opening and esophagus insufflated. The endoscope was then advanced to the first, second and third portions of the esophagus. At the level of the GE junction, a reflux esophagitis between class B and C identified. There were no ulcers or strictures identified in this region. A biopsy was taken with forceps with visualization of good hemostasis. The endoscope was then easily advanced in the stomach. The endoscope retroflexed, visualizing a small hiatal hernia approximately 2 cm in size. A moderate severity gastritis, which was diffuse throughout the stomach was identified. There were no polyps identified with relatively normal appearing mucosa. A biopsy was taken from the stomach antrum with forceps with visualization of good hemostasis. The endoscope was then advanced to the pylorus and the first and second portions of the duodenum, which appeared normal with no ulcers or any distal obstructions. The endoscope was then slowly withdrawn while taking a second look and suctioning of residual air with no additional findings. The patient tolerated the procedure well. We will continue with medical management and increase her cimetidine to 40 mg b.i.d. and she is again instructed to proceed with the necessary lifestyle and diet accommodation including small and more frequent meals, avoidance of eating at night as well as head elevation while laying supine. She also needs to avoid caffeinated beverages, spicy, greasy and acidic foods. Job ID: [id number] DocumentID: [id number] Dictated Date: 07/19/2017 11:27:19 Executive Director Of Nursing Date: 07/19/2017 17:13:27 Dictated By: KALEB FLORES MD
== END 2017-07-19 12:19 | disposition home or self-care (01) ==
LOC: ENDO 09:43
PROVIDERS: ATTEND Surgery
DX: K21.0 Gastro-esophageal reflux disease with esophagitis (principal); K44.9 Diaphragmatic hernia without obstruction or gangrene; K29.70 Gastritis, unspecified, without bleeding; D50.9 Iron deficiency anemia, unspecified; D51.0 Vitamin B12 deficiency anemia due to intrinsic factor deficiency
CPT/HCPCS: 84703

== ENCOUNTER 2017-11-04 13:12 | Outpatient (RCR) | payer BC ==
[2017-10-22 13:35] LABS: BASOPHILS % (AUTO) 0 % (0-10); EOSINOPHILS # (AUTO) 0.1 10^3/uL (0.0-0.3); EOSINOPHILS % (AUTO) 1 % (0-10); HEMATOCRIT 39 % (35-52); HEMOGLOBIN 13.9 G/DL (11.5-16.0); LYMPHOCYTES # (AUTO) 1.5 X 10^3 (1.0-4.0); LYMPHOCYTES % (AUTO) 23 % (12-44); MEAN CORPUSCULAR HEMOGLOBIN 30 PG (25-34); MEAN CORPUSCULAR HGB CONC 35 G/DL (32-36); MEAN CORPUSCULAR VOLUME 86 FL (80-99); MEAN PLATELET VOLUME 9.5 FL (7.4-10.4); MONOCYTES # (AUTO) 0.3 X 10^3 (0.0-1.0); MONOCYTES % (AUTO) 5 % (0-12); NEUTROPHILS # (AUTO) 4.4 X 10^3 (1.8-7.8); NEUTROPHILS % (AUTO) 70 % (42-75); PLATELET COUNT 246 10^3/uL (130-400); RED BLOOD COUNT 4.58 10^6/uL (4.35-5.85); RED CELL DISTRIBUTION WIDTH 13.1 % (10.0-14.5); WHITE BLOOD COUNT 6.3 10^3/uL (4.3-11.0)
[2017-10-22 14:09] LABS: ALANINE AMINOTRANSFERASE 17 U/L (0-55); ALBUMIN 4.3 GM/DL (3.2-4.5); ALKALINE PHOSPHATASE 68 U/L (40-136); BILIRUBIN,TOTAL 1.3 MG/DL (0.1-1.0); BUN/CREATININE RATIO 17; CALCIUM 9.7 MG/DL (8.5-10.1); CARBON DIOXIDE 26 MMOL/L (21-32); CHLORIDE 107 MMOL/L (98-107); CREATININE SERUM 0.78 MG/DL (0.60-1.30); GFR ESTIMATED > 60; GLUCOSE 88 MG/DL (70-105); POTASSIUM 3.5 MMOL/L (3.6-5.0); SODIUM 140 MMOL/L (135-145); TOTAL PROTEIN 7.3 GM/DL (6.4-8.2)
== END 2018-01-20 | disposition home or self-care (01) ==
LOC: ONC 13:12
PROVIDERS: ATTEND Internal Medicine Hematology & Oncology
DX: D50.9 Iron deficiency anemia, unspecified (principal); K90.9 Intestinal malabsorption, unspecified; E66.9 Obesity, unspecified; Z68.31 Body mass index [BMI] 31.0-31.9, adult
CPT/HCPCS: 36415; 80053; 82728; 83921; 85025; 99213

== ENCOUNTER → 2018-01-24 | Outpatient (CLI) | payer BC ==
--- NOTE | 2018-01-24 10:46 | Diagnostic Imaging Report ---
Indication: Routine screening. Comparison is made to prior study from 01/18/2017 and 11/25/2015. 2-D and 3-D bilateral screening mammography was performed with CAD. Scattered fibroglandular densities are identified bilaterally. The parenchymal pattern is stable. No mass or malignant-appearing micro-ulcerations are seen. There are benign calcifications bilaterally. Axillae are unremarkable. Impression: BI-RADS category 2 No mammographic features suspicious for malignancy are identified. ACR BI-RADS Category 2: Benign findings. Result letter will be mailed to the patient. Note: At least 10% of breast cancer is not imaged by mammography. Dictated by: Dictated on workstation # [id number]
== END ==
LOC: RAD 08:53
PROVIDERS: ATTEND Obstetrics & Gynecology
DX: Z12.31 Encounter for screening mammogram for malignant neoplasm of breast (principal)
CPT/HCPCS: 77067

== ENCOUNTER 2018-02-14 15:18 | Outpatient (RCR) | payer BC ==
[2018-01-24 10:59] LABS: BASOPHILS % (AUTO) 1 % (0-10); EOSINOPHILS # (AUTO) 0.1 10^3/uL (0.0-0.3); EOSINOPHILS % (AUTO) 1 % (0-10); HEMATOCRIT 41 % (35-52); HEMOGLOBIN 13.8 G/DL (11.5-16.0); LYMPHOCYTES # (AUTO) 1.7 X 10^3 (1.0-4.0); LYMPHOCYTES % (AUTO) 28 % (12-44); MEAN CORPUSCULAR HEMOGLOBIN 29 PG (25-34); MEAN CORPUSCULAR HGB CONC 34 G/DL (32-36); MEAN CORPUSCULAR VOLUME 85 FL (80-99); MEAN PLATELET VOLUME 9.6 FL (7.4-10.4); MONOCYTES # (AUTO) 0.6 X 10^3 (0.0-1.0); MONOCYTES % (AUTO) 10 % (0-12); NEUTROPHILS # (AUTO) 3.6 X 10^3 (1.8-7.8); NEUTROPHILS % (AUTO) 61 % (42-75); PLATELET COUNT 244 10^3/uL (130-400); RED BLOOD COUNT 4.79 10^6/uL (4.35-5.85); RED CELL DISTRIBUTION WIDTH 14.2 % (10.0-14.5); WHITE BLOOD COUNT 5.9 10^3/uL (4.3-11.0)
[2018-01-24 11:17] LABS: ALANINE AMINOTRANSFERASE 13 U/L (0-55); ALBUMIN 4.5 GM/DL (3.2-4.5); ALKALINE PHOSPHATASE 66 U/L (40-136); BILIRUBIN,TOTAL 1.2 MG/DL (0.1-1.0); BUN/CREATININE RATIO 12; CALCIUM 9.7 MG/DL (8.5-10.1); CARBON DIOXIDE 25 MMOL/L (21-32); CHLORIDE 107 MMOL/L (98-107); CREATININE SERUM 0.78 MG/DL (0.60-1.30); GFR ESTIMATED > 60; GLUCOSE 89 MG/DL (70-105); POTASSIUM 4.2 MMOL/L (3.6-5.0); SODIUM 140 MMOL/L (135-145); TOTAL PROTEIN 7.4 GM/DL (6.4-8.2)
[~2018-02-14 15:18] MED LIST changes: +FERRIC CARBOXYMALTOSE (CANCER) 750 MG in NS (IVPB) CANCER CENTER 250 ML IV SCH
== END 2018-04-24 | disposition home or self-care (01) ==
LOC: ONC 15:18
PROVIDERS: ATTEND Internal Medicine Hematology & Oncology
DX: D50.9 Iron deficiency anemia, unspecified (principal); K90.9 Intestinal malabsorption, unspecified; E66.9 Obesity, unspecified; Z68.31 Body mass index [BMI] 31.0-31.9, adult
CPT/HCPCS: 36415; 80053; 82728; 85025; 96365; 99213

== ENCOUNTER 2018-05-09 09:18 | Outpatient (RCR) | payer BC ==
[~2018-05-09 09:18] MED LIST changes: -FERRIC CARBOXYMALTOSE (CANCER) 750 MG in NS (IVPB) CANCER CENTER 250 ML IV SCH
[2018-05-09 09:32] LABS: BASOPHILS % (AUTO) 1 % (0-10); EOSINOPHILS # (AUTO) 0.1 10^3/uL (0.0-0.3); EOSINOPHILS % (AUTO) 2 % (0-10); HEMATOCRIT 40 % (35-52); HEMOGLOBIN 14.5 G/DL (11.5-16.0); LYMPHOCYTES # (AUTO) 1.7 X 10^3 (1.0-4.0); LYMPHOCYTES % (AUTO) 37 % (12-44); MEAN CORPUSCULAR HEMOGLOBIN 33 PG (25-34); MEAN CORPUSCULAR HGB CONC 36 G/DL (32-36); MEAN CORPUSCULAR VOLUME 90 FL (80-99); MEAN PLATELET VOLUME 9.5 FL (7.4-10.4); MONOCYTES # (AUTO) 0.3 X 10^3 (0.0-1.0); MONOCYTES % (AUTO) 6 % (0-12); NEUTROPHILS # (AUTO) 2.6 X 10^3 (1.8-7.8); NEUTROPHILS % (AUTO) 55 % (42-75); PLATELET COUNT 176 10^3/uL (130-400); RED BLOOD COUNT 4.43 10^6/uL (4.35-5.85); RED CELL DISTRIBUTION WIDTH 13.9 % (10.0-14.5); WHITE BLOOD COUNT 4.7 10^3/uL (4.3-11.0)
[2018-05-09 09:54] LABS: ALANINE AMINOTRANSFERASE 18 U/L (0-55); ALBUMIN 4.5 GM/DL (3.2-4.5); ALKALINE PHOSPHATASE 67 U/L (40-136); BUN/CREATININE RATIO 13; CARBON DIOXIDE 25 MMOL/L (21-32); CHLORIDE 106 MMOL/L (98-107); GFR ESTIMATED > 60; GLUCOSE 93 MG/DL (70-105); POTASSIUM 4.5 MMOL/L (3.6-5.0); SODIUM 139 MMOL/L (135-145); TOTAL PROTEIN 7.5 GM/DL (6.4-8.2)
== END 2018-05-11 | disposition home or self-care (01) ==
LOC: ONC 09:18
PROVIDERS: ATTEND Internal Medicine Hematology & Oncology
DX: D50.9 Iron deficiency anemia, unspecified (principal); K90.9 Intestinal malabsorption, unspecified; E66.9 Obesity, unspecified; Z68.31 Body mass index [BMI] 31.0-31.9, adult
CPT/HCPCS: 36415; 80053; 82728; 85025

== ENCOUNTER 2018-06-06 10:17 | Outpatient (CLI) | payer BC ==
[~2018-06-06] VITALS: Ht 165.1 cm; Wt 87.1 kg
[2018-06-06] MEDS ORDERED: DIPH25TA65 PO (10:34)
[2018-06-06 10:49] VITALS: BP 119/77
[2018-06-06 11:01] LABS: BASOPHILS % (AUTO) 1 % (0-10); EOSINOPHILS # (AUTO) 0.1 10^3/uL (0.0-0.3); EOSINOPHILS % (AUTO) 1 % (0-10); HEMATOCRIT 40 % (35-52); HEMOGLOBIN 14.1 G/DL (11.5-16.0); LYMPHOCYTES # (AUTO) 1.4 X 10^3 (1.0-4.0); LYMPHOCYTES % (AUTO) 29 % (12-44); MEAN CORPUSCULAR HEMOGLOBIN 32 PG (25-34); MEAN CORPUSCULAR HGB CONC 35 G/DL (32-36); MEAN CORPUSCULAR VOLUME 91 FL (80-99); MEAN PLATELET VOLUME 9.6 FL (7.4-10.4); MONOCYTES # (AUTO) 0.3 X 10^3 (0.0-1.0); MONOCYTES % (AUTO) 7 % (0-12); NEUTROPHILS # (AUTO) 2.9 X 10^3 (1.8-7.8); NEUTROPHILS % (AUTO) 62 % (42-75); PLATELET COUNT 195 10^3/uL (130-400); RED BLOOD COUNT 4.43 10^6/uL (4.35-5.85); RED CELL DISTRIBUTION WIDTH 13.4 % (10.0-14.5); WHITE BLOOD COUNT 4.7 10^3/uL (4.3-11.0)
== END 2018-06-06 10:50 | disposition home or self-care (01) ==
LOC: PREOP 10:17
PROVIDERS: ATTEND Obstetrics & Gynecology
DX: Z01.812 Encounter for preprocedural laboratory examination (principal); Z11.2 Encounter for screening for other bacterial diseases; N92.0 Excessive and frequent menstruation with regular cycle; N39.3 Stress incontinence (female) (male); D64.9 Anemia, unspecified
CPT/HCPCS: 36415; 85025; 87081

== ENCOUNTER 2018-06-13 06:05 | Day surgery (SDC) | payer BC ==
[~2018-06-13] VITALS: Ht 165.1 cm; Wt 87.1 kg
[~2018-06-13 06:05] MED LIST changes: +DIPH25TA65 PO
[2018-06-13 06:15] VITALS: BP 122/83
--- OUTSIDE RECORDS SUMMARY | 2018-06-13 06:22 | XMS REPORT ---
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 Active 25370252 ALLERGIES No Known Allergies ENCOUNTERS Encounter Location Date Diagnosis [facility] [address] [address] Oct, Acute nasopharyngitis J00 [facility] [address] [address] Aug, Encounter for immunization Z23 [facility] [address] [address] Nov, Mixed emotional features as adjustment reaction F43.23 [facility] [id number] [place] [phone] Oct, Mixed emotional features as adjustment reaction F43.23 [facility] [address] [address] Sep, Mixed emotional features as adjustment reaction F43.23 [facility] [address] [address] Aug, Mixed emotional features as adjustment reaction F43.23 [facility] [address] [address] Jul, Mixed emotional features as adjustment reaction F43.23 [facility] [address] [address] May, Encounter for immunization Z23 [facility] [id number] [place] [address] Mar, Mixed emotional features as adjustment reaction F43.23 [facility] [id number] [place] [phone] December, Mixed emotional features as adjustment reaction F43.23 [facility] [id number] [place] [address] Nov, Adjustment disorder with mixed anxiety and depressed mood 309.28 [facility] [id number] [place] [phone] Oct, Adjustment disorder with mixed anxiety and depressed mood 309.28 [facility] [id number] [place] [phone] Jun, Adjustment disorder with mixed anxiety and depressed mood 309.28 [facility] [id number] [place] [address] May, Flu vaccine need Z23 [facility] [id number] [place] [address] May, [facility] [id number] [place] [phone] May, [facility] [id number] [place] [phone] Apr, [facility] [id number] [place] [address] Oct, [facility] [id number] [place] [phone] Jun, [facility] [id number] [place] [phone] Jun, [facility] [id number] [place] [address] May, [facility] [address] [facility] [id number] [place] [address] Apr, [facility] [address] [facility] [id number] [place] [address] Apr, [facility] [address] [facility] [id number] [place] [address] Feb, IMMUNIZATIONS No Known Immunizations SOCIAL HISTORY Never Assessed REASON FOR VISIT cough started Sat/Sun [id number] PLAN OF CARE Activity Details Follow Up prn Reason: VITAL SIGNS Weight 193.8 lbs 2017-10-15 Temperature 99.6 degrees Fahrenheit 2017-10-15 Heart Rate 84 bpm 2017-10-15 Respiratory Rate 20 2017-10-15 Blood pressure systolic 116 mmHg 2017-10-15 Blood pressure diastolic 72 mmHg 2017-10-15 MEDICATIONS Medication Instructions Dosage Frequency Start Date End Date Duration Status Tessalon Perles 100 MG Orally Three times a day 1 capsule as needed 8h Oct, Oct, 10 days Active Pepcid 40 MG Orally Twice a day 1 tablet 12h Active RESULTS No Results PROCEDURES No Known procedures INSTRUCTIONS MEDICATIONS ADMINISTERED No Known Medications
--- OUTSIDE RECORDS SUMMARY | 2018-06-13 06:22 | XMS REPORT | Clinical Summary ---
Demographics Preferred Language Unknown Marital Status Unknown Yarsanism Affiliation Unknown Race Unknown Ethnic Group Unknown Author Author [facility] Organization [facility] Address Unknown Phone Unavailable Care Team Providers Care Data Entry Analyst Name Role Phone PCP Unavailable Allergies Not on File Current Medications Not on file Active Problems Not on file Social History Tobacco Use Types Packs/Day Years Used Date Never Assessed Sex Assigned at Date Recorded Not on file Last Filed Vital Signs Not on file Plan of Treatment Not on file Results Not on filefrom Last 3 Months
--- OUTSIDE RECORDS SUMMARY | 2018-06-13 06:22 | XMS REPORT ---
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 [address] [address] Nov, Mixed emotional features as adjustment reaction F43.23 [facility] [address] [address] Oct, Mixed emotional features as adjustment reaction F43.23 [facility] [address] [address] Sep, Mixed emotional features as adjustment reaction F43.23 [facility] [address] [address] Aug, Mixed emotional features as adjustment reaction F43.23 [facility] [address] [address] Jul, Mixed emotional features as adjustment reaction F43.23 [facility] [address] [address] May, Encounter for immunization Z23 [facility] [id number] [place] [address] Mar, Mixed emotional features as adjustment reaction F43.23 [facility] [id number] [place] [address] December, Mixed emotional features as adjustment reaction F43.23 [facility] [id number] [place] [address] Nov, Adjustment disorder with mixed anxiety and depressed mood 309.28 [facility] [id number] [place] [phone] Oct, Adjustment disorder with mixed anxiety and depressed mood 309.28 [facility] [id number] [place] [phone] Jun, Adjustment disorder with mixed anxiety and depressed mood 309.28 [facility] [id number] [place] [phone] May, Flu vaccine need Z23 [facility] [id number] [place] [phone] May, [facility] [id number] [place] [phone] May, [facility] [id number] [place] [address] Apr, [facility] [id number] [place] [phone] Oct, [facility] [id number] [place] [phone] Jun, [facility] [id number] [place] [address] [phone] Jun, [facility] [id number] [place] [phone] May, [facility] [id number] [place] [address] Apr, [facility] [address] [facility] [id number] [place] [address] Apr, [facility] [address] [facility] [id number] [place] [address] Feb, IMMUNIZATIONS Vaccine Route Administration Date Status FLULAVAL QUAD (6 MO AND UP) 2016 IM Intramuscular Aug 17, 2017 Administered SOCIAL HISTORY Never Assessed REASON FOR VISIT flu shot per pts request. [email or web address] PLAN OF CARE VITAL SIGNS MEDICATIONS No Known Medications RESULTS No Results PROCEDURES Procedure Date Ordered Result Body Site FLULAVAL QUAD (6 MO AND UP) 2017 Aug 17, 2017 SINGLE IMMUNIZATION ADMIN Aug 17, 2017 INSTRUCTIONS MEDICATIONS ADMINISTERED No Known Medications
--- OUTSIDE RECORDS SUMMARY | 2018-06-13 06:23 | XMS REPORT | Continuity of Care Document ---
Author Author [facility] Address Unknown Phone Unavailable Allergies Active Description Code Type Severity Reaction Onset Reported/Identified Relationship to Patient Clinical Status Yes NO KNOWN DRUG ALLERGIES UNKNOWN NO KNOWN DRUG ALLERG Yes No Known Drug Allergies [id number] Drug Allergy Mild N/A 04/30/2008 Yes No Known Drug Allergies [id number] Drug Allergy Unknown N/A 07/12/2017 Medications There is no data. Problems Date Dx Coded Attending Type Code Diagnosis Diagnosed By 09/28/2010 Ot 285.9 ANEMIA NOS 09/28/2010 Ot 354.0 CARPAL TUNNEL SYNDROME 09/28/2010 Ot 616.10 VAGINITIS NOS 09/28/2010 Ot 646.61 INFECTION -DELIVERED 09/28/2010 Ot 648.21 ANEMIA- DELIVERED 09/28/2010 Ot 648.91 OTH CURR COND-DELIVERED 09/28/2010 Ot 654.21 PREV DELIVRY W/ OR W/O MENT ANT 09/28/2010 Ot 659.61 ELD MULTIGRAVIDA DEL W MENTION OF ANTEPA 09/28/2010 Ot V27.0 DELIVER- SINGLE LIVEBORN 03/07/2012 309.28 AD ADJ D/O W [...] DX (3 YRS AND ABOVE, IM) 12/20/2013 CLEMENCIA JIMENEZ, BRINDA A Ot 351.0 NAVARRETE'S PALSY 12/20/2013 CLEMENCIA JIMENEZ, BRINDA A Ot 782.0 SKIN SENSATION DISTURB 06/29/2014 Ot [...] DELIVERY, ANTEPARTUM COND 11/25/2015 Ot V72.83 EXAM PRE- OPERATIVE NEC 11/25/2015 Ot V74.8 SCREEN- BACTERIAL DIS NEC 11/25/2015 Ot 782.0 SKIN SENSATION DISTURB 11/25/2015 Ot 784.0 HEADACHE 11/25/2015 Ot 793.82 INCONCLUSIVE MAMMOGRAM 11/25/2015 Ot V76.12 OTH SCREEN MAMMO-MALIGN NEOPLASM OF LUCY 11/25/2015 Ot 611.0 INFLAM DISEASE OF BREAST 11/25/2015 Ot 793.80 UNSPEC ABNORMAL MAMMOGRAM 11/25/2015 Ot V67.9 FOLLOW-UP EXAM NOS 11/25/2015 JACKIE NARAYAN DO Ot 793.89 OTH (ABN) FINDINGS ON RADIOLOGICAL EXAMI 11/25/2015 Ot 341.8 CEMENT MASON HELPER DEMYELINATION NEC 11/25/2015 Ot 346.11 MGRN W/OUT AURA W INTRACTABLE MGRN W/O S 11/25/2015 Ot 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 11/25/2015 JACKIE NARAYAN DO Ot V76.12 OTH SCREEN MAMMO-MALIGN NEOPLASM OF LUCY 11/25/2015 CA FIELDS Ot V76.12 OTH SCREEN MAMMO-MALIGN NEOPLASM OF LUCY 11/25/2015 CA FIELDS Ot 795.09 OTHER ABNORMAL PAPANICOLAOU SMEAR OF CER 11/28/2015 JACKIE NARAYAN DO Ot Z12.31 ENCNTR SCREEN MAMMOGRAM FOR MALIGNANT NE 12/08/2015 JACKIE NARAYAN DO Ot Z12.31 ENCNTR SCREEN [...] FINDINGS ON RADIOLOGICAL EXAMI 10/11/2016 Ot 341.8 CEMENT MASON HELPER DEMYELINATION NEC 10/11/2016 Ot 346.11 MGRN W/OUT [...] FINDINGS ON RADIOLOGICAL EXAMI 11/09/2016 Ot 341.8 CEMENT MASON HELPER DEMYELINATION NEC 11/09/2016 Ot 346.11 MGRN W/OUT AURA W INTRACTABLE MGRN W/O S 11/09/2016 Ot 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 11/09/2016 JACKIE NARAYAN DO Ot V76.12 OTH SCREEN MAMMO-MALIGN NEOPLASM OF LUCY 11/09/2016 CA FIELDS Ot V76.12 OTH SCREEN MAMMO-MALIGN NEOPLASM OF LUCY 11/09/2016 CA FIELDS PATTERN DUPLICATOR Ot 795.09 OTHER ABNORMAL PAPANICOLAOU SMEAR OF CER 11/09/2016 JACKIE NARAYAN DO Ot Z12.31 ENCNTR SCREEN MAMMOGRAM FOR MALIGNANT NE 11/09/2016 TRESSA JIMENEZ, ROYA Mercado Ot D50.9 IRON DEFICIENCY ANEMIA, UNSPECIFIED 11/09/2016 TRESSA JIMENEZ, ROYA Mercado Ot E66.9 OBESITY, UNSPECIFIED 11/09/2016 TRESSA JIMENEZ, ROYA Mercado Ot K90.9 INTESTINAL MALABSORPTION, UNSPECIFIED 11/09/2016 TRESSA JIMENEZ, ROYA Mercado Ot Z68.31 BODY MASS INDEX (BMI) 31.0-31.9, ADULT 11/09/2016 KALEB FLORES MD Ot D50.9 IRON DEFICIENCY ANEMIA, UNSPECIFIED 11/09/2016 KALEB FLORES MD, Ot D51.3 OTHER DIETARY VITAMIN B12 DEFICIENCY ANE 11/09/2016 KALEB FLORES MD Ot K21.0 GASTRO-ESOPHAGEAL REFLUX DISEASE WITH ES 11/09/2016 KALEB FLORES MD Ot K29.70 GASTRITIS, UNSPECIFIED, WITHOUT BLEEDING 11/09/2016 KALEB FLORES MD Ot K31.7 POLYP OF STOMACH AND DUODENUM 11/09/2016 KALEB FLORES MD, Ot K44.9 DIAPHRAGMATIC HERNIA WITHOUT OBSTRUCTION 11/09/2016 KALEB FLORES MD, Ot K59.00 CONSTIPATION, UNSPECIFIED 11/09/2016 KALEB FLORES MD, Ot K64.1 SECOND DEGREE HEMORRHOIDS 11/26/2016 ROYA BUSTILLOS MD, Ot D50.9 IRON DEFICIENCY ANEMIA, UNSPECIFIED 11/26/2016 ROYA BUSTILLOS MD, Ot E66.9 OBESITY, UNSPECIFIED 11/26/2016 ROYA BUSTILLOS MD, Ot K90.9 INTESTINAL MALABSORPTION, UNSPECIFIED 11/26/2016 ROYA BUSTILLOS MD, Ot Z68.31 BODY MASS INDEX (BMI) 31.0-31.9, ADULT 12/12/2016 ROYA BUSTILLOS MD, Ot D50.9 IRON DEFICIENCY ANEMIA, UNSPECIFIED 12/12/2016 ROYA BUSTILLOS MD, Ot E66.9 OBESITY, UNSPECIFIED 12/12/2016 ROYA BUSTILLOS MD, Ot K90.9 INTESTINAL MALABSORPTION, UNSPECIFIED 12/12/2016 ROYA BUSTILLOS MD, Ot Z68.31 BODY MASS INDEX (BMI) 31.0-31.9, ADULT 01/09/2017 ROYA BUSTILLOS MD, Ot D50.9 IRON DEFICIENCY ANEMIA, UNSPECIFIED 01/09/2017 ROYA BUSTILLOS MD, Ot E66.9 OBESITY, UNSPECIFIED 01/09/2017 ROYA BUSTILLOS MD, Ot K90.9 INTESTINAL MALABSORPTION, UNSPECIFIED 01/09/2017 ROYA BUSTILLOS MD Ot Z68.31 BODY MASS INDEX (BMI) 31.0-31.9, ADULT 01/10/2017 ROYA BUSTILLOS MD, Ot D50.9 IRON DEFICIENCY ANEMIA, UNSPECIFIED 01/10/2017 ROYA BUSTILLOS MD, Ot E66.9 OBESITY, UNSPECIFIED 01/10/2017 ROYA BUSTILLOS MD, Ot K90.9 INTESTINAL MALABSORPTION, UNSPECIFIED 01/10/2017 ROYA BUSTILLOS MD, Ot Z68.31 BODY MASS INDEX (BMI) 31.0-31.9, ADULT 01/17/2017 Ot 782.0 SKIN SENSATION DISTURB 01/17/2017 Ot 784.0 HEADACHE 01/17/2017 Ot 793.82 INCONCLUSIVE MAMMOGRAM 01/17/2017 Ot V76.12 OTH SCREEN MAMMO-MALIGN NEOPLASM OF LUCY 01/17/2017 Ot 611.0 INFLAM DISEASE OF BREAST 01/17/2017 Ot 793.80 UNSPEC ABNORMAL MAMMOGRAM 01/17/2017 Ot V67.9 FOLLOW-UP EXAM NOS 01/17/2017 JACKIE NARAYAN DO Ot 793.89 OTH (ABN) FINDINGS ON RADIOLOGICAL EXAMI 01/17/2017 Ot 341.8 CEMENT MASON HELPER DEMYELINATION NEC 01/17/2017 Ot 346.11 MGRN W/OUT AURA W INTRACTABLE MGRN W/O S 01/17/2017 Ot 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 01/17/2017 JACKIE NARAYAN DO Ot V76.12 OTH SCREEN MAMMO-MALIGN NEOPLASM OF LUCY 01/17/2017 DONNIE CACee REYES Ot V76.12 OTH SCREEN MAMMO-MALIGN NEOPLASM OF LUCY 01/17/2017 CA FIELDS Ot 795.09 OTHER ABNORMAL PAPANICOLAOU SMEAR OF CER 01/17/2017 JACKIE NARAYAN DO Ot Z12.31 ENCNTR SCREEN MAMMOGRAM FOR MALIGNANT NE 01/17/2017 TRESSA JIMENEZ, ROYA Mercado Ot D50.9 IRON DEFICIENCY ANEMIA, UNSPECIFIED 01/17/2017 TRESSA JIMENEZ, ROYA Mercado Ot E66.9 OBESITY, UNSPECIFIED 01/17/2017 TRESSA JIMENEZ, ROYA Mercado Ot K90.9 INTESTINAL MALABSORPTION, UNSPECIFIED 01/17/2017 TRESSA JIMENEZ, ROYA Mercado Ot Z68.31 BODY MASS INDEX (BMI) 31.0-31.9, ADULT 01/20/2017 JACKIE NARAYAN DO Ot Z12.31 ENCNTR SCREEN MAMMOGRAM FOR MALIGNANT NE 01/24/2017 JACKIE NARAYAN DO Ot Z12.31 ENCNTR SCREEN MAMMOGRAM FOR MALIGNANT NE 01/31/2017 JACKIE NARAYAN DO Ot Z12.31 ENCNTR SCREEN MAMMOGRAM FOR MALIGNANT NE 02/04/2017 Ot 782.0 SKIN SENSATION DISTURB 02/04/2017 Ot 784.0 HEADACHE 02/04/2017 Ot 793.82 INCONCLUSIVE MAMMOGRAM 02/04/2017 Ot V76.12 OTH SCREEN MAMMO-MALIGN NEOPLASM OF LUCY 02/04/2017 Ot 611.0 INFLAM DISEASE OF BREAST 02/04/2017 Ot 793.80 UNSPEC ABNORMAL MAMMOGRAM 02/04/2017 Ot V67.9 FOLLOW-UP EXAM NOS 02/04/2017 JACKIE NARAYAN DO Ot 793.89 OTH (ABN) FINDINGS ON RADIOLOGICAL EXAMI 02/04/2017 Ot 341.8 CEMENT MASON HELPER DEMYELINATION NEC 02/04/2017 Ot 346.11 MGRN W/OUT AURA W INTRACTABLE MGRN W/O S 02/04/2017 Ot 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 02/04/2017 JACKIE NARAYAN DO Ot V76.12 OTH SCREEN MAMMO-MALIGN NEOPLASM OF LUCY 02/04/2017 CA FIELDS Ot V76.12 OTH SCREEN MAMMO-MALIGN NEOPLASM OF LUCY 02/04/2017 CA FIELDS PATTERN DUPLICATOR Ot 795.09 OTHER ABNORMAL PAPANICOLAOU SMEAR OF CER 02/04/2017 JACKIE NARAYAN DO Ot Z12.31 ENCNTR SCREEN MAMMOGRAM FOR MALIGNANT NE 02/04/2017 JACKIE NARAYAN DO Ot Z12.31 ENCNTR SCREEN MAMMOGRAM FOR MALIGNANT NE 02/04/2017 TRESSA JIMENEZ, ROYA Mercado Ot D50.9 IRON DEFICIENCY ANEMIA, UNSPECIFIED 02/04/2017 TRESSA JIMENEZ, ROYA Mercado Ot E66.9 OBESITY, UNSPECIFIED 02/04/2017 TRESSA JIMENEZ, ROYA Mercado Ot K90.9 INTESTINAL MALABSORPTION, UNSPECIFIED 02/04/2017 TRESSA JIMENEZ, ROYA Mercado Ot Z68.31 BODY MASS INDEX (BMI) 31.0-31.9, ADULT 02/13/2017 JACKIE NARAYAN DO Ot Z12.31 ENCNTR SCREEN MAMMOGRAM FOR MALIGNANT NE 02/15/2017 Ot 782.0 SKIN SENSATION DISTURB 02/15/2017 Ot 784.0 HEADACHE 02/15/2017 Ot 793.82 INCONCLUSIVE MAMMOGRAM 02/15/2017 Ot V76.12 OTH SCREEN MAMMO-MALIGN NEOPLASM OF LUCY 02/15/2017 Ot 611.0 INFLAM DISEASE OF BREAST 02/15/2017 Ot 793.80 UNSPEC ABNORMAL MAMMOGRAM 02/15/2017 Ot V67.9 FOLLOW-UP EXAM NOS 02/15/2017 JACKIE NARAYAN DO Ot 793.89 OTH (ABN) FINDINGS ON RADIOLOGICAL EXAMI 02/15/2017 Ot 341.8 CEMENT MASON HELPER DEMYELINATION NEC 02/15/2017 Ot 346.11 MGRN W/OUT AURA W INTRACTABLE MGRN W/O S 02/15/2017 Ot 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 02/15/2017 JACKIE NARAYAN DO Ot V76.12 OTH SCREEN MAMMO-MALIGN NEOPLASM OF LUCY 02/15/2017 DONNIECA PATTERN DUPLICATOR Ot V76.12 OTH SCREEN MAMMO-MALIGN NEOPLASM OF LUCY 02/15/2017 DONNIECA PATTERN DUPLICATOR Ot 795.09 OTHER ABNORMAL PAPANICOLAOU SMEAR OF CER 02/15/2017 JACKIE NARAYAN DO Ot Z12.31 ENCNTR SCREEN MAMMOGRAM FOR MALIGNANT NE 02/15/2017 JACKIE NARAYAN DO Ot Z12.31 ENCNTR SCREEN MAMMOGRAM FOR MALIGNANT NE 02/15/2017 ROYA BUSTILLOS MD, Ot D50.9 IRON DEFICIENCY ANEMIA, UNSPECIFIED 02/15/2017 ROYA BUSTILLOS MD, Ot E66.9 OBESITY, UNSPECIFIED 02/15/2017 ROYA BUSTILLOS MD, Ot K90.9 INTESTINAL MALABSORPTION, UNSPECIFIED 02/15/2017 ROYA BUSTILLOS MD, Ot Z68.31 BODY MASS INDEX (BMI) 31.0-31.9, ADULT 02/18/2017 ROYA BUSTILLOS MD, Ot D50.9 IRON DEFICIENCY ANEMIA, UNSPECIFIED 02/18/2017 ROYA BUSTILLOS MD, Ot E66.9 OBESITY, UNSPECIFIED 02/18/2017 ROYA BUSTILLOS MD Ot K90.9 INTESTINAL MALABSORPTION, UNSPECIFIED 02/18/2017 ROYA BUSTILLOS MD Ot Z68.31 BODY MASS INDEX (BMI) 31.0-31.9, ADULT 04/03/2017 ROYA BUSTILLOS MD, Ot D50.9 IRON DEFICIENCY ANEMIA, UNSPECIFIED 04/03/2017 ROYA BUSTILLOS MD, Ot E66.9 OBESITY, UNSPECIFIED 04/03/2017 ROYA BUSTILLOS MD Ot K90.9 INTESTINAL MALABSORPTION, UNSPECIFIED 04/03/2017 ROYA BUSTILLOS MD Ot Z68.31 BODY MASS INDEX (BMI) 31.0-31.9, ADULT 05/11/2017 ROYA BUSTILLOS MD, Ot D50.9 IRON DEFICIENCY ANEMIA, UNSPECIFIED 05/11/2017 ROYA BUSTILLOS MD, Ot E66.9 OBESITY, UNSPECIFIED 05/11/2017 ROYA BUSTILLOS MD, Ot K90.9 INTESTINAL MALABSORPTION, UNSPECIFIED 05/11/2017 ROYA BUSTILLOS MD Ot Z68.31 BODY MASS INDEX (BMI) 31.0-31.9, ADULT 06/13/2017 NEO MCCOLLUM Ot D50.9 IRON DEFICIENCY ANEMIA, UNSPECIFIED 06/13/2017 VEDA NEO Tang Ot E66.9 OBESITY, UNSPECIFIED 06/13/2017 VEDA NEO Tang Ot K90.9 INTESTINAL MALABSORPTION, UNSPECIFIED 06/13/2017 VEDA NEO Tang Ot Z68.31 BODY MASS INDEX (BMI) 31.0-31.9, ADULT 07/12/2017 KALEB FLORES MD Ot K21.9 GASTRO-ESOPHAGEAL REFLUX DISEASE WITHOUT 07/12/2017 SANDRA JIMENEZ, KALEB Ot Z01.818 ENCOUNTER FOR OTHER PREPROCEDURAL EXAMIN 07/18/2017 KALEB FLORES MD, Ot K21.9 GASTRO-ESOPHAGEAL REFLUX DISEASE WITHOUT 07/18/2017 KALEB FLORES MD Ot Z01.818 ENCOUNTER FOR OTHER PREPROCEDURAL EXAMIN 07/19/2017 Ot 793.80 UNSPEC ABNORMAL MAMMOGRAM 07/19/2017 Ot V67.9 FOLLOW-UP EXAM NOS 07/19/2017 JACKIE NARAYAN DO Ot 793.89 OTH (ABN) FINDINGS ON RADIOLOGICAL EXAMI 07/19/2017 Ot 341.8 CEMENT MASON HELPER DEMYELINATION NEC 07/19/2017 Ot 346.11 MGRN W/OUT AURA W INTRACTABLE MGRN W/O S 07/19/2017 Ot 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 07/19/2017 JACKIE NARAYAN DO Ot V76.12 OTH SCREEN MAMMO-MALIGN NEOPLASM OF LUCY 07/19/2017 CA FIELDS Ot V76.12 OTH SCREEN MAMMO-MALIGN NEOPLASM OF LUCY 07/19/2017 CA FIELDS Ot 795.09 OTHER ABNORMAL PAPANICOLAOU SMEAR OF CER 07/19/2017 JACKIE NARAYAN DO Ot Z12.31 ENCNTR SCREEN MAMMOGRAM FOR MALIGNANT NE 07/19/2017 JACKIE NARAYAN DO Ot Z12.31 ENCNTR SCREEN MAMMOGRAM FOR MALIGNANT NE 07/19/2017 NEO MCCOLLUM Ot D50.9 IRON DEFICIENCY ANEMIA, UNSPECIFIED 07/19/2017 NEO MCCOLLUM Ot E66.9 OBESITY, UNSPECIFIED 07/19/2017 NEO MCCOLLUM Ot K90.9 INTESTINAL MALABSORPTION, UNSPECIFIED 07/19/2017 NEO MCCOLLUM Ot Z68.31 BODY MASS INDEX (BMI) 31.0-31.9, ADULT 07/19/2017 KALEB FLORES MD, Ot D50.9 IRON DEFICIENCY ANEMIA, UNSPECIFIED 07/19/2017 KALEB FLORES MD, Ot D51.0 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 07/19/2017 KALEB FLORES MD Ot K21.0 GASTRO-ESOPHAGEAL REFLUX DISEASE WITH ES 07/19/2017 KALEB FLORES MD Ot K29.70 GASTRITIS, UNSPECIFIED, WITHOUT BLEEDING 07/19/2017 KALEB FLORES MD, Ot K44.9 DIAPHRAGMATIC HERNIA WITHOUT OBSTRUCTION 07/25/2017 NEO MCCOLLUM Ot D50.9 IRON DEFICIENCY ANEMIA, UNSPECIFIED 07/25/2017 NEO MCCOLLUM Ot E66.9 OBESITY, UNSPECIFIED 07/25/2017 NEO MCCOLLUM Ot K90.9 INTESTINAL MALABSORPTION, UNSPECIFIED 07/25/2017 NEO MCCOLLUM Ot Z68.31 BODY MASS INDEX (BMI) 31.0-31.9, ADULT 08/16/2017 KALEB FLORES MD, Ot D50.9 IRON DEFICIENCY ANEMIA, UNSPECIFIED 08/16/2017 KALEB FLORES MD, Ot D51.0 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 08/16/2017 KALEB FLORES MD, Ot K21.0 GASTRO-ESOPHAGEAL REFLUX DISEASE WITH ES 08/16/2017 KALEB FLORES MD, Ot K29.70 GASTRITIS, UNSPECIFIED, WITHOUT BLEEDING 08/16/2017 KALEB FLORES MD, Ot K44.9 DIAPHRAGMATIC HERNIA WITHOUT OBSTRUCTION 08/22/2017 NEO MCCOLLUM Ot D50.9 IRON DEFICIENCY ANEMIA, UNSPECIFIED 08/22/2017 VEDANEO N Ot E66.9 OBESITY, UNSPECIFIED 08/22/2017 VEDANEO TOMLIN N Ot K90.9 INTESTINAL MALABSORPTION, UNSPECIFIED 08/22/2017 NEO MCCOLLUM Ot Z68.31 BODY MASS INDEX (BMI) 31.0-31.9, ADULT 09/10/2017 NEO MCCOLLUM N Ot D50.9 IRON DEFICIENCY ANEMIA, UNSPECIFIED 09/10/2017 VEDANEO TOMLIN N Ot E66.9 OBESITY, UNSPECIFIED 09/10/2017 VEDANEO TOMLIN N Ot K90.9 INTESTINAL MALABSORPTION, UNSPECIFIED 09/10/2017 VEDA, NENOAN N Ot Z68.31 BODY MASS INDEX (BMI) 31.0-31.9, ADULT 10/22/2017 JACKIE NARAYAN DO Ot 793.89 OTH (ABN) FINDINGS ON RADIOLOGICAL EXAMI 10/22/2017 Ot 341.8 CEMENT MASON HELPER DEMYELINATION NEC 10/22/2017 Ot 346.11 MGRN W/OUT AURA W INTRACTABLE MGRN W/O S 10/22/2017 Ot 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 10/22/2017 HELENE MIRELES JACKIE C Ot V76.12 OTH SCREEN MAMMO-MALIGN NEOPLASM OF LUCY 10/22/2017 DONNIE CA Judi PATTERN DUPLICATOR Ot V76.12 OTH SCREEN MAMMO-MALIGN NEOPLASM OF LUCY 10/22/2017 DONNIE CACee WINSTONP Ot 795.09 OTHER ABNORMAL PAPANICOLAOU SMEAR OF CER 10/22/2017 NARAYANJACKIE Lau DO Ot Z12.31 ENCNTR SCREEN MAMMOGRAM FOR MALIGNANT NE 10/22/2017 JACKIE NARAYAN DO Ot Z12.31 ENCNTR SCREEN MAMMOGRAM FOR MALIGNANT NE 10/22/2017 VEDA BOBAN N Ot D50.9 IRON DEFICIENCY ANEMIA, UNSPECIFIED 10/22/2017 VEDA, BOBAN N Ot E66.9 OBESITY, UNSPECIFIED 10/22/2017 VEDA, BOBAN N Ot K90.9 INTESTINAL MALABSORPTION, UNSPECIFIED 10/22/2017 VEDA, BOBAN N Ot Z68.31 BODY MASS INDEX (BMI) 31.0-31.9, ADULT 10/23/2017 VEDA, BOBAN N Ot D50.9 IRON DEFICIENCY ANEMIA, UNSPECIFIED 10/23/2017 VEDA, BOBAN N Ot E66.9 OBESITY, UNSPECIFIED 10/23/2017 VEDA, BOBAN N Ot K90.9 INTESTINAL MALABSORPTION, UNSPECIFIED 10/23/2017 VEDA, BOBAN N Ot Z68.31 BODY MASS INDEX (BMI) 31.0-31.9, ADULT 11/22/2017 VEDA, BOBAN N Ot D50.9 IRON DEFICIENCY ANEMIA, UNSPECIFIED 11/22/2017 VEDA, BOBAN N Ot E66.9 OBESITY, UNSPECIFIED 11/22/2017 VEDA, BOBAN N Ot K90.9 INTESTINAL MALABSORPTION, UNSPECIFIED 11/22/2017 VEDA, BOBAN N Ot Z68.31 BODY MASS INDEX (BMI) 31.0-31.9, ADULT 12/04/2017 VEDA, BOBAN N Ot D50.9 IRON DEFICIENCY ANEMIA, UNSPECIFIED 12/04/2017 VEDA, BOBAN N Ot E66.9 OBESITY, UNSPECIFIED 12/04/2017 VEDA, BOBAN N Ot K90.9 INTESTINAL MALABSORPTION, UNSPECIFIED 12/04/2017 VEDA, BOBAN N Ot Z68.31 BODY MASS INDEX (BMI) 31.0-31.9, ADULT 01/20/2018 VEDA, BOBAN N Ot D50.9 IRON DEFICIENCY ANEMIA, UNSPECIFIED 01/20/2018 VEDA, BOBAN N Ot E66.9 OBESITY, UNSPECIFIED 01/20/2018 VEDA, BOBAN N Ot K90.9 INTESTINAL MALABSORPTION, UNSPECIFIED 01/20/2018 VEDA, BOBAN N Ot Z68.31 BODY MASS INDEX (BMI) 31.0-31.9, ADULT 01/23/2018 VEDA, BOBAN N Ot D50.9 IRON DEFICIENCY ANEMIA, UNSPECIFIED 01/23/2018 VEDA, BOBAN N Ot E66.9 OBESITY, UNSPECIFIED 01/23/2018 VEDA, BOBAN N Ot K90.9 INTESTINAL MALABSORPTION, UNSPECIFIED 01/23/2018 VEDA, BOBAN N Ot Z68.31 BODY MASS INDEX (BMI) 31.0-31.9, ADULT 01/27/2018 JACKIE NARAYAN DO Ot Z12.31 ENCNTR SCREEN MAMMOGRAM FOR MALIGNANT NE 01/27/2018 VEDA, BOBAN N Ot D50.9 IRON DEFICIENCY ANEMIA, UNSPECIFIED 01/27/2018 VEDA, BOBAN N Ot E66.9 OBESITY, UNSPECIFIED 01/27/2018 VEDA, BOBAN N Ot K90.9 INTESTINAL MALABSORPTION, UNSPECIFIED 01/27/2018 VEDA, BOBAN N Ot Z68.31 BODY MASS INDEX (BMI) 31.0-31.9, ADULT 02/03/2018 VEDA, BOBAN N Ot D50.9 IRON DEFICIENCY ANEMIA, UNSPECIFIED 02/03/2018 VEDA, BOBAN N Ot E66.9 OBESITY, UNSPECIFIED 02/03/2018 VEDA, BOBAN N Ot K90.9 INTESTINAL MALABSORPTION, UNSPECIFIED 02/03/2018 VEDA, BOBAN N Ot Z68.31 BODY MASS INDEX (BMI) 31.0-31.9, ADULT 02/20/2018 JACKIE NARAYAN DO Ot Z12.31 ENCNTR SCREEN MAMMOGRAM FOR MALIGNANT NE 02/20/2018 VEDA, NEO N Ot D50.9 IRON DEFICIENCY ANEMIA, UNSPECIFIED 02/20/2018 VEDA, NEO N Ot E66.9 OBESITY, UNSPECIFIED 02/20/2018 VEDA, NENOAN N Ot K90.9 INTESTINAL MALABSORPTION, UNSPECIFIED 02/20/2018 VEDA, BOBSTACI N Ot Z68.31 BODY MASS INDEX (BMI) 31.0-31.9, ADULT 03/05/2018 VEDA, NEO N Ot D50.9 IRON DEFICIENCY ANEMIA, UNSPECIFIED 03/05/2018 VEDA, NEO N Ot E66.9 OBESITY, UNSPECIFIED 03/05/2018 VEDA, NEO N Ot K90.9 INTESTINAL MALABSORPTION, UNSPECIFIED 03/05/2018 VEDA, NEO N Ot Z68.31 BODY MASS INDEX (BMI) 31.0-31.9, ADULT 2018 JACKIE NARAYAN DO Ot 793.89 OTH (ABN) FINDINGS ON RADIOLOGICAL EXAMI 2018 JACKIE NARAYAN DO Ot V76.12 OTH SCREEN MAMMO-MALIGN NEOPLASM OF LUCY 2018 AC FIELDS PATTERN DUPLICATOR Ot V76.12 OTH SCREEN MAMMO-MALIGN NEOPLASM OF LUCY 2018 CA FIELDS PATTERN DUPLICATOR Ot 795.09 OTHER ABNORMAL PAPANICOLAOU SMEAR OF CER 2018 JACKIE NARAYAN DO Ot Z12.31 ENCNTR SCREEN MAMMOGRAM FOR MALIGNANT NE 2018 JACKIE NARAYAN DO Ot Z12.31 ENCNTR SCREEN MAMMOGRAM FOR MALIGNANT NE 2018 JACKIE NARAYAN DO Ot Z12.31 ENCNTR SCREEN MAMMOGRAM FOR MALIGNANT NE 2018 VEDANEO N Ot D50.9 IRON DEFICIENCY ANEMIA, UNSPECIFIED 2018 VEDA, NEO N Ot E66.9 OBESITY, UNSPECIFIED 2018 VEDA, NEO N Ot K90.9 INTESTINAL MALABSORPTION, UNSPECIFIED 2018 NEO MCCOLLUM N Ot Z68.31 BODY MASS INDEX (BMI) 31.0-31.9, ADULT 04/24/2018 NEO MCCOLLUM Clyde Ot D50.9 IRON DEFICIENCY ANEMIA, UNSPECIFIED 04/24/2018 NEO MCCOLLUM N Ot E66.9 OBESITY, UNSPECIFIED 04/24/2018 NEO MCCOLLUM N Ot K90.9 INTESTINAL MALABSORPTION, UNSPECIFIED 04/24/2018 NEO MCCOLLUM Clyde Ot Z68.31 BODY MASS INDEX (BMI) 31.0-31.9, ADULT 04/27/2018 NARAYAN DO JACKIE C Ot 793.89 OTH (ABN) FINDINGS ON RADIOLOGICAL EXAMI 04/27/2018 NARAYAN DO JACKIE C Ot V76.12 OTH SCREEN MAMMO-MALIGN NEOPLASM OF LUCY 04/27/2018 CA FIELDS PATTERN DUPLICATOR Ot V76.12 OTH SCREEN MAMMO-MALIGN NEOPLASM OF LUCY 04/27/2018 CA FIELDSP Ot 795.09 OTHER ABNORMAL PAPANICOLAOU SMEAR OF CER 04/27/2018 NARAYAN DO JACKIE C Ot Z12.31 ENCNTR SCREEN MAMMOGRAM FOR MALIGNANT NE 04/27/2018 NARAYAN DO, JACKIE C Ot Z12.31 ENCNTR SCREEN MAMMOGRAM FOR MALIGNANT NE 04/27/2018 NARAYAN DO, JACKIE C Ot Z12.31 ENCNTR SCREEN MAMMOGRAM FOR MALIGNANT NE 04/27/2018 NEO MCCOLLUM Clyde Ot D50.9 IRON DEFICIENCY ANEMIA, UNSPECIFIED 04/27/2018 NEO MCCOLLUM N Ot E66.9 OBESITY, UNSPECIFIED 04/27/2018 NEO MCCOLLUM N Ot K90.9 INTESTINAL MALABSORPTION, UNSPECIFIED 04/27/2018 NEO MCCOLLUM N Ot Z68.31 BODY MASS INDEX (BMI) 31.0-31.9, ADULT 05/01/2018 NARAYAN DO, JACKIE C Ot 793.89 OTH (ABN) FINDINGS ON RADIOLOGICAL EXAMI 05/01/2018 NARAYAN DO JACKIE C Ot V76.12 OTH SCREEN MAMMO-MALIGN NEOPLASM OF LUCY 05/01/2018 CA FIELDS PATTERN DUPLICATOR Ot V76.12 OTH SCREEN MAMMO-MALIGN NEOPLASM OF LUCY 05/01/2018 CA FIELDS PATTERN DUPLICATOR Ot 795.09 OTHER ABNORMAL [place] SMEAR OF CER 05/01/2018 HELENE DOJACKIE Ot Z12.31 ENCNTR SCREEN MAMMOGRAM FOR MALIGNANT NE 05/01/2018 NARAYAN DOJACKIE Ot Z12.31 ENCNTR SCREEN MAMMOGRAM FOR MALIGNANT NE 05/01/2018 NARAYAN DOJACKIE Ot Z12.31 ENCNTR SCREEN MAMMOGRAM FOR MALIGNANT NE 05/01/2018 VEDA, BOBAN N Ot D50.9 IRON DEFICIENCY ANEMIA, UNSPECIFIED 05/01/2018 VEDA, BOBAN N Ot E66.9 OBESITY, UNSPECIFIED 05/01/2018 VEDA, BOBAN N Ot K90.9 INTESTINAL MALABSORPTION, UNSPECIFIED 05/01/2018 VEDA, BOBAN N Ot Z68.31 BODY MASS INDEX (BMI) 31.0-31.9, ADULT 05/11/2018 VEDA, BOBAN N Ot D50.9 IRON DEFICIENCY ANEMIA, UNSPECIFIED 05/11/2018 VEDA, BOBAN N Ot E66.9 OBESITY, UNSPECIFIED 05/11/2018 VEDA, BOBAN N Ot K90.9 INTESTINAL MALABSORPTION, UNSPECIFIED 05/11/2018 VEDA, BOBAN N Ot Z68.31 BODY MASS INDEX (BMI) 31.0-31.9, ADULT 05/12/2018 VEDA, BOBAN N Ot D50.9 IRON DEFICIENCY ANEMIA, UNSPECIFIED 05/12/2018 VEDA, BOBAN N Ot E66.9 OBESITY, UNSPECIFIED 05/12/2018 VEDA, BOBAN N Ot K90.9 INTESTINAL MALABSORPTION, UNSPECIFIED 05/12/2018 VEDA, BOBAN N Ot Z68.31 BODY MASS INDEX (BMI) 31.0-31.9, ADULT 06/02/2018 ESAU JIMENEZ, JESSICA Damon Ot M79.18 MYALGIA, OTHER SITE 06/02/2018 JESSICA CIFUENTES MD Ot M79.18 MYALGIA, OTHER SITE 06/10/2018 HELENE DOJACKIE Ot D64.9 ANEMIA, UNSPECIFIED 06/10/2018 HELENE DOJACKIE Ot N39.3 STRESS INCONTINENCE (FEMALE) (MALE) 06/10/2018 HELENE DOJACKIE Ot N92.0 EXCESSIVE AND FREQUENT MENSTRUATION WITH 06/10/2018 HELENE DOJACKIE Ot Z01.812 ENCOUNTER FOR PREPROCEDURAL LABORATORY E 06/10/2018 JACKIE NARAYAN DO Amparo Ot Z11.2 ENCOUNTER FOR SCREENING FOR OTHER BACTER Procedures Code Description Performed By Performed On 74.1 09/26/2010 13514 INDIV PSYTX 45/50 MIN 07/11/2012 69429 PSYTX PT&/FAMILY 45 MINUTES 10/31/2012 Results Test Result Range Urine beta human chorionic gonadotropin (hCG) measurement - 11/09/16 11:00 Urine beta human chorionic gonadotropin (hCG) measurement NEGATIVE NEGATIVE Urine beta human chorionic gonadotropin (hCG) measurement - 07/19/17 10:00 Urine beta human chorionic gonadotropin (hCG) measurement NEGATIVE NEGATIVE Sed Rate - 01/28/18 16:44 Sed Rate 16 mm/hr 9-15 JULIO w/Reflex - 01/28/18 16:44 JULIO DIRECT NEGATIVE NEGATIVE Anti-dsDNA Antibodies - 01/28/18 16:44 ANTI-DNA (DS) AB QN 1 IU/ML 0-9 Anticardiolip Ab, IgA/G/M, Qn - 01/28/18 16:44 ANTICARDIOLIPIN AB,IGA,QN <9 APL U/ML 0-11 ANTICARDIOLIPIN AB,IGG,QN <9 GPL U/ML 0-14 ANTICARDIOLIPIN AB,IGM,QN 9 MPL U/ML 0-12 Anti-dsDNA Antibodies - 01/28/18 16:44 Anti-DNA (DS) Ab Qn 1 IU/mL 0-9 JULIO w/Reflex - 01/28/18 16:44 JULIO Direct Negative Negative Anticardiolip Ab, IgA/G/M, Qn - 01/28/18 16:44 Anticardiolipin Ab,IgG,Qn <9 GPL U/mL 0-14 Anticardiolipin Ab,IgM,Qn 9 MPL U/mL 0-12 Anticardiolipin Ab,IgA,Qn <9 APL U/mL 0-11 Anti-DNase B Strep Antibodies - 01/28/18 16:44 Anti-DNase B Strep Antibodies 205 U/mL 0-120 Anti-DNA(SS)IgG, Ab, Qn - 01/28/18 16:44 Anti-DNA(SS)IgG, Ab, Qn <20 EU 0-19 Complete blood count (CBC) with automated white blood cell (WBC) differential - 06/06/18 10:40 Blood leukocytes automated count (number/volume) 4.7 10*3/uL 4.3-11.0 Blood erythrocytes automated count (number/volume) 4.43 10*6/uL 4.35-5.85 Venous blood hemoglobin measurement (mass/volume) 14.1 g/dL 11.5-16.0 Blood hematocrit (volume fraction) 40 % 35-52 Automated erythrocyte mean corpuscular volume 91 [foz_us] 80-99 Automated erythrocyte mean corpuscular hemoglobin (mass per erythrocyte) 32 pg 25-34 Automated erythrocyte mean corpuscular hemoglobin concentration measurement ( mass/volume) 35 g/dL 32-36 Automated erythrocyte distribution width ratio 13.4 % 10.0-14.5 Automated blood platelet count (count/volume) 195 10*3/uL 130-400 Automated blood platelet mean volume measurement 9.6 [foz_us] 7.4-10.4 Automated blood neutrophils/100 leukocytes 62 % 42-75 Automated blood lymphocytes/100 leukocytes 29 % 12-44 Blood monocytes/100 leukocytes 7 % 0-12 Automated blood eosinophils/100 leukocytes 1 % 0-10 Automated blood basophils/100 leukocytes 1 % 0-10 Blood neutrophils automated count (number/volume) 2.9 10*3 1.8-7.8 Blood lymphocytes automated count (number/volume) 1.4 10*3 1.0-4.0 Blood monocytes automated count (number/volume) 0.3 10*3 0.0-1.0 Automated eosinophil count 0.1 10*3/uL 0.0-0.3 Automated blood basophil count (count/volume) 0.0 10*3/uL 0.0-0.1 Methicillin resistant Staphylococcus aureus (MRSA) screening culture - 10:40 Methicillin resistant Staphylococcus aureus (MRSA) screening culture NEG NRG Encounters ACCT No. Visit Date/Time Discharge Status Pt. Type Provider Facility Loc./Unit Complaint [id number] 05/13/2014 18:28:00 05/13/2014 23:59:59 CLS Outpatient VARINDER DUMAS DO [id number] 05/09/2013 08:59:00 05/09/2013 23:59:59 CLS Outpatient VARINDER DUMAS DO [id number] 10/31/2012 08:56:00 10/31/2012 23:59:59 CLS Outpatient [id number] 07/11/2012 09:57:00 07/11/2012 23:59:59 CLS Outpatient [id number] 01/28/2018 16:43:00 01/28/2018 23:59:00 DIS Outpatient MARISOL CALIX [id number] 01/12/2018 00:00:00 01/12/2018 23:59:00 DIS Outpatient Jessica Cifuentes [id number] 06/06/2018 10:17:00 06/06/2018 10:50:00 DIS Outpatient JACKIE NARAYAN DO [facility] PREOP HYSTEROSCOPY, JACQUELYN Larry SLING [id number] 05/16/2018 08:43:00 05/16/2018 23:59:59 CLS Outpatient NEO MCCOLLUM [facility] ONC [id number] 05/09/2018 09:18:00 05/11/2018 00:01:00 DIS Outpatient NEO MCCOLLUM [facility] ONC [id number] 02/14/2018 15:18:00 04/24/2018 00:01:00 DIS Outpatient NEO MCCOLLUM [facility] ONC [id number] 01/24/2018 08:53:00 01/24/2018 23:59:59 CLS Outpatient JACKIE NARAYAN DO [facility] RAD SCREENING [id number] 11/04/2017 13:12:00 01/20/2018 00:01:00 DIS Outpatient NEO MCCOLLUM [facility] ONC [id number] 06/26/2017 08:54:00 09/10/2017 00:01:00 DIS Outpatient NEO MCCOLLUM [facility] ONC [id number] 07/19/2017 09:43:00 07/19/2017 12:19:00 DIS Outpatient KALEB FLORES MD [facility] ENDO HX STOMACH POLYP [id number] 07/12/2017 05:32:00 07/12/2017 11:23:00 DIS Outpatient KALEB FLORES MD [facility] PREOP EGD [id number] 02/21/2017 08:51:00 05/11/2017 00:01:00 DIS Outpatient ROYA BUSTILLOS MD [facility] ONC [id number] 01/18/2017 10:34:00 01/18/2017 23:59:59 CLS Outpatient JACKIE NARAYAN DO [facility] RAD SCREENING [id number] 11/16/2016 10:21:00 01/09/2017 00:01:00 DIS Outpatient ROYA BUSTILLOS MD [facility] ONC [id number] 11/09/2016 10:51:00 11/09/2016 14:05:00 DIS Outpatient KALEB FLORES MD [facility] ENDO ANEMIA [id number] 11/07/2016 05:39:00 11/07/2016 13:37:00 DIS Outpatient KALEB FLORES MD [facility] PREOP ANEMIA [id number] 11/25/2015 10:32:00 11/25/2015 23:59:59 CLS Outpatient JACKIE NARAYAN DO [facility] RAD SCREENING [id number] 07/30/2015 16:47:00 07/30/2015 23:59:59 CLS Outpatient MENDEL ADAMS APRN [facility] QUICK [id number] 12/03/2014 11:51:00 12/03/2014 23:59:59 CLS Outpatient CA FIELDS [facility] RAD UNEXPLAINED ENDOMETRIAL CELLS ON CERVICAL PAPSMEAR [id number] 11/26/2014 09:37:00 11/26/2014 23:59:59 CLS Outpatient CA FIELDS [facility] RAD SCREENING [id number] 12/25/2013 07:18:00 12/25/2013 23:59:59 CLS Outpatient JACKIE NARAYAN DO [facility] RAD SCREENING [id number] 12/20/2013 17:28:00 12/20/2013 19:26:00 DIS Emergency BRINDA KHANNA MD [facility] ER FACIAL NUMBNESS [id number] 12/29/2012 12:52:00 12/29/2012 23:59:59 CLS Outpatient JACKIE NARAYAN DO [facility] RAD ABNORMAL MAMMO [id number] 06/11/2018 09:27:00 ACT Outpatient ESAU JIMENEZ, JESSICA Damon [facility] REHAB L GLUTE/PIRIFORMIS PAIN [id number] 06/06/2018 10:24:00 Document Registration [id number] 05/02/2012 12:39:00 Document Registration [id number] 03/24/2012 12:28:00 Document Registration [id number] 12/18/2011 12:37:00 Document Registration [id number] 12/07/2011 08:53:00 Document Registration [id number] 11/23/2011 12:40:00 Document Registration [id number] 09/26/2010 05:45:00 Document Registration [id number] 09/19/2010 09:38:00 Document Registration [id number] 05/30/2010 13:32:00 Document Registration [id number] 01/10/2010 08:22:00 Document Registration [id number] 01/30/2018 17:18:00 Document Registration 02/201606/18/2017 16:49:05 06/18/2017 23:59:59 CLS Outpatient Diandra Puri [id number] 12/03/2014 11:52:13 ACT Document Registration [id number] 02/04/2018 17:19:00 Document Registration [id number] 10/15/2017 17:45:00 10/15/2017 23:59:59 CLS Outpatient Diandra Puri [facility]
[2018-06-13] MEDS ORDERED: LACTATED RINGERS 1,000 ML IV PRN (06:26)
[2018-06-13] MEDS ORDERED: ceFAZolin INJECTION 1,000 MG in NS (IVPB) 50 ML IV ONE (06:30)
[2018-06-13] MEDS ORDERED: metroNIDAZOLE 500MG/100ML IVPB 100 ML IV ONE (06:30)
[2018-06-13] MEDS ORDERED: MIDAZOLAM 2 MG/2 ML (VERSED) VIAL ONE (06:38)
[2018-06-13] MEDS ORDERED: fentaNYL INJECTION 100 MCG/2 ML AMP ONE (06:38)
[2018-06-13] MEDS ORDERED: proPOfol 200 MG/20 ML (DIPRIVAN) VIAL IV ONE (06:38)
[2018-06-13] MEDS ORDERED: LIDOCAINE PF 2% 5 ML (XYLOCAINE) VIAL ONE (06:38)
[2018-06-13] MEDS ORDERED: ONDANSETRON 4 MG/2 ML (SDV) Z0FRAN ONE (06:38)
[2018-06-13] MEDS ORDERED: LACTATED RINGERS 0 ML IV ONE (06:38)
[2018-06-13] MEDS ORDERED: ROCURONIUM 10 MG/ML 5 ML SYRINGE IV ONE (06:38)
[2018-06-13] MEDS ORDERED: DEXAMETHASONE 10 MG/ML (DECADRON) 1 ML VIAL ONE (06:43)
[2018-06-13] MEDS ORDERED: SEVOFLURANE (ULTANE) 15 ML INHAL SOLN ONE ×8 (06:44→08:47)
[2018-06-13] MEDS ORDERED: FAMOTIDINE 20MG/2ML IV (PEPCID) IV ONE (06:45)
[2018-06-13] MEDS ORDERED: CATHETER FLUSH 10 ML SYR IV PRN (07:00)
--- NOTE | 2018-06-13 07:21 | Progress Note-Pre Operative ---
Pre-Operative Progress Note H&P Reviewed The H&P was reviewed, patient examined and no changes noted. Date Seen by Provider: Jun 13, 2018 Time Seen by Provider: 07:10 Date H&P Reviewed: Jun 13, 2018 Time H&P Reviewed: 07:00 Pre-Operative Diagnosis: menorrhagia, anemia, low ferritin, stress incontinence JACKIE NARAYAN DO Jun 13, 2018 07:21
[2018-06-13] MEDS ORDERED: VASOPRESSIN INJECTION 20 UNIT/ML VIAL ONE (07:37)
[2018-06-13] MEDS ORDERED: NS (IVPB) 100 ML ONE (07:37)
[2018-06-13] MEDS ORDERED: BUP/EPI 0.5% 1:200,000 (SENSORCAINE) 30 ML VIAL ONE (08:03)
[2018-06-13] MEDS ORDERED: D5 LR IV SOLUTION 1,000 ML IV SCH (09:00)
[2018-06-13] MEDS ORDERED: ONDANSETRON 4 MG/2 ML (SDV) Z0FRAN IVP PRN (09:00)
[2018-06-13] MEDS ORDERED: KETOROLAC 30 MG/ML VIAL IVP ONE (09:00)
[2018-06-13] MEDS ORDERED: KETOROLAC 30 MG/ML VIAL ONE (09:05)
--- NOTE | 2018-06-13 09:05 | Operative Report ---
Operative Report Date of Procedure/Surgery Jun 13, 2018 Surgeon (s) JACKIE NARAYAN DO [employer] Chair (s): Henry Oconnor, MS III Post-Operative Diagnosis same Procedure Performed Hysteroscopy, dilation and curettage, Novasure endometrial ablation (aborted), Solyx Pubovaginal sling Description of Procedure Anesthesia Type: General Estimated blood loss (mL): 100 Specimen(s) collected/removed endometrial curettings Description of the Procedure With informed consent the patient was taken to the operating room where general anesthesia was found to be adequate. The bladder was drained of clear, yellow urine. A speculum was placed in the vagina and the cervix was grasped with the sharp toothed tenaculum. There was 2+ descensus noted. The cervix was then gently dilated to insert a hysteroscope. A hysteroscopy was done and revealed polypoid tissue and proliferative endometrium. I then removed the scope and did a curette and sent endometrial curettings for pathology. At this point I proceeded with the NovaSure ablation. I did a Suresound to measure the endometrial cavity which measured 7 cm. I now inserted the NovaSure device and took appropriate measurements. The width was 3.5 cm. Power 125. The compliance test was done but despite multiple efforts to close the cervix around the device and sealing any possible leakage I could never get the compliance to pass. I did a follow up hysteroscopy and the endometrial cavity distended appropriately and no perforation was noted. However, I could not complete the ablation. The procedure was now aborted. At this point I proceeded with the pubovaginal sling. I made a 1 cm incision about 1.5 cm from the urethral meatus. I injected the paraurethral space with Vasopressin and then dissected this space laterally to the obturator space. I now inserted the Solyx sling in the standard fashion bilaterally ensuring that it laid under the urethral. I then did a cystoscopy and there was no intravesicular pathology or puncture of the bladder. I then did a Cred maneuver with approximately 3-400 ml of water and there was no incontinence. I then removed the sling applicator. I then closed the incision with 4-0 Monocryl. There was good hemostasis. The fluid was left in the bladder. All the instruments were removed. The patient was awakened and taken to the recovery room in stable condition. Sponge, lap, needle and instrument counts were correct times two. 7 cm/ 3.5 cm 125 Power Findings of the Procedure proliferative endometrium Allergies and Home Medications Allergies Coded Allergies: No Known Drug Allergies (Unverified , 07/12/17) Home Medications Diphenhydramine HCl 25 Mg Tablet, 12.5 MG PO HS, (Reported) take 1/2 of 25mg tab Famotidine 40 Mg Tablet, 40 MG PO BID, (Reported) Hydrocodone Bit/Acetaminophen 1 Tab Tab, 1 TAB PO Q6hr PRN for PAIN-MODERATE Prescribed by: JACKIE NARAYAN on 06/13/18905 Ibuprofen 600 Mg Tablet, 600 MG PO Q6H Prescribed by: JACKIE NARAYAN on 06/13/18905 Norethindrone Acetate 5 Mg Tablet, 5 MG PO DAILY Prescribed by: JACKIE NARAYAN on 06/13/18912 Patient Home Medication List Home Medication List Reviewed: Yes JACKIE NARAYAN DO Jun 13, 2018 9:04 am
[2018-06-13] MEDS ORDERED: ACHD5005 PO (09:06)
[2018-06-13] MEDS ORDERED: IBUP-1773 PO (09:06)
--- NOTE | 2018-06-13 09:10 | Discharge Inst-Women's Service ---
Discharge Inst-Women's Serv Depart Medication/Instructions New, Converted or Re-Newed RX: RX on Chart Instructions expect to have bleeding, light for up to a week I was unable to perform the ablation, either due to an unseen perforation or, more likely, due to the size of the cavity. I would recommend progesterone for a few months and then consider a hysterectomy at some point Please call jackie if you are unable to urinate Final Diagnosis menorrhagia anemia low ferritin stress incontinence Consults/Follow Up Additional Follow Up: Yes (1-2 weeks) Activity Activity: Activity as Tolerated Driving Instructions: No Driving for 24 Hours NO SMOKING: NO SMOKING Nothing Inside Vagina: No Douching, No [place], No Tampons Diet Discharge Diet: No Restrictions Symptoms to Report to : Bleeding Excessive, Pain Increased, Fever Over 101 Degrees F, Pain/Pressure in Jaw, Vaginal Bleeding Increase, Cramps in Feet or Legs, Vaginal Discharge Foul For Any Problems or Questions: Contact Your Physician JACKIE NARAYAN DO Jun 13, 2018 09:10
[2018-06-13] MEDS ORDERED: NORE5TAB2 PO (09:13)
[2018-06-13 10:00] VITALS: BP 120/86
[2018-06-13 10:05] VITALS: BP 120/86
[2018-06-13 10:30] VITALS: BP 115/76
[2018-06-13 11:00] VITALS: BP 108/69
[2018-06-13] MEDS ORDERED: KETOROLAC 30 MG/ML VIAL IVP PRN (15:00)
== END 2018-06-13 11:30 | disposition home or self-care (01) ==
LOC: SDC 06:05
PROVIDERS: ATTEND Obstetrics & Gynecology
DX: N92.0 Excessive and frequent menstruation with regular cycle (principal); N39.3 Stress incontinence (female) (male); D50.9 Iron deficiency anemia, unspecified; K21.9 Gastro-esophageal reflux disease without esophagitis; R79.0 Abnormal level of blood mineral; E66.9 Obesity, unspecified; Z68.31 Body mass index [BMI] 31.0-31.9, adult
CPT/HCPCS: 84703; 88305; 94664

== ENCOUNTER 2018-10-17 08:30 | Outpatient (RCR) | payer BC ==
[~2018-10-17 08:30] MED LIST changes: +ACHD5005 PO; +IBUP-1773 PO; +NORE5TAB2 PO
== END 2018-10-17 09:05 | disposition home or self-care (01) ==
PROVIDERS: ATTEND Family Medicine
DX: M79.18 Myalgia, other site (principal)

== ENCOUNTER 2018-11-10 08:41 | Outpatient (RCR) | payer BC ==
[2018-08-22 09:42] LABS: BASOPHILS % (AUTO) 0 % (0-10); EOSINOPHILS # (AUTO) 0.1 10^3/uL (0.0-0.3); EOSINOPHILS % (AUTO) 1 % (0-10); HEMATOCRIT 42 % (35-52); HEMOGLOBIN 14.5 G/DL (11.5-16.0); LYMPHOCYTES # (AUTO) 1.4 X 10^3 (1.0-4.0); LYMPHOCYTES % (AUTO) 29 % (12-44); MEAN CORPUSCULAR HEMOGLOBIN 31 PG (25-34); MEAN CORPUSCULAR HGB CONC 34 G/DL (32-36); MEAN CORPUSCULAR VOLUME 90 FL (80-99); MEAN PLATELET VOLUME 9.7 FL (7.4-10.4); MONOCYTES # (AUTO) 0.4 X 10^3 (0.0-1.0); MONOCYTES % (AUTO) 8 % (0-12); NEUTROPHILS # (AUTO) 2.9 X 10^3 (1.8-7.8); NEUTROPHILS % (AUTO) 61 % (42-75); PLATELET COUNT 202 10^3/uL (130-400); WHITE BLOOD COUNT 4.7 10^3/uL (4.3-11.0)
[2018-08-22 10:02] LABS: ALANINE AMINOTRANSFERASE 15 U/L (0-55); ALBUMIN 4.3 GM/DL (3.2-4.5); ALKALINE PHOSPHATASE 71 U/L (40-136); BILIRUBIN,TOTAL 1.4 MG/DL (0.1-1.0); BUN/CREATININE RATIO 12; CALCIUM 9.4 MG/DL (8.5-10.1); CARBON DIOXIDE 24 MMOL/L (21-32); CHLORIDE 108 MMOL/L (98-107); CREATININE SERUM 0.82 MG/DL (0.60-1.30); GFR ESTIMATED > 60; GLUCOSE 74 MG/DL (70-105); SODIUM 141 MMOL/L (135-145); TOTAL PROTEIN 7.1 GM/DL (6.4-8.2)
[2018-10-31 09:26] LABS: BASOPHILS % (AUTO) 0 % (0-10); EOSINOPHILS % (AUTO) 1 % (0-10); HEMATOCRIT 42 % (35-52); HEMOGLOBIN 14.7 G/DL (11.5-16.0); LYMPHOCYTES # (AUTO) 1.3 X 10^3 (1.0-4.0); LYMPHOCYTES % (AUTO) 28 % (12-44); MEAN CORPUSCULAR HEMOGLOBIN 31 PG (25-34); MEAN CORPUSCULAR HGB CONC 35 G/DL (32-36); MEAN CORPUSCULAR VOLUME 89 FL (80-99); MEAN PLATELET VOLUME 9.6 FL (7.4-10.4); MONOCYTES # (AUTO) 0.3 X 10^3 (0.0-1.0); MONOCYTES % (AUTO) 7 % (0-12); NEUTROPHILS % (AUTO) 64 % (42-75); PLATELET COUNT 198 10^3/uL (130-400); RED CELL DISTRIBUTION WIDTH 13.3 % (10.0-14.5); WHITE BLOOD COUNT 4.6 10^3/uL (4.3-11.0)
[2018-10-31 09:47] LABS: ALANINE AMINOTRANSFERASE 24 U/L (0-55); ALBUMIN 4.4 GM/DL (3.2-4.5); ALKALINE PHOSPHATASE 70 U/L (40-136); BILIRUBIN,TOTAL 1.7 MG/DL (0.1-1.0); BUN/CREATININE RATIO 12; CALCIUM 9.8 MG/DL (8.5-10.1); CARBON DIOXIDE 27 MMOL/L (21-32); CHLORIDE 104 MMOL/L (98-107); CREATININE SERUM 0.91 MG/DL (0.60-1.30); GFR ESTIMATED > 60; GLUCOSE 102 MG/DL (70-105); POTASSIUM 4.5 MMOL/L (3.6-5.0); SODIUM 138 MMOL/L (135-145); TOTAL PROTEIN 6.9 GM/DL (6.4-8.2)
== END 2018-11-20 | disposition home or self-care (01) ==
LOC: ONC 08:41
PROVIDERS: ATTEND Internal Medicine Hematology & Oncology
DX: D50.9 Iron deficiency anemia, unspecified (principal); K90.9 Intestinal malabsorption, unspecified; E66.9 Obesity, unspecified; Z68.31 Body mass index [BMI] 31.0-31.9, adult
CPT/HCPCS: 36415; 80053; 82728; 83540; 85025; 99213

== ENCOUNTER → 2019-02-06 | Outpatient (CLI) | payer BC | LOC: RAD 13:08 | PROVIDERS: ATTEND Obstetrics & Gynecology | DX: Z12.31 Encounter for screening mammogram for malignant neoplasm of breast (principal) | CPT/HCPCS: 77067 ==

== ENCOUNTER 2019-02-26 14:53 | Outpatient (RCR) | payer BC ==
[2019-02-23 15:35] LABS: BASOPHILS % (AUTO) 0 % (0-10); EOSINOPHILS # (AUTO) 0.1 10^3/uL (0.0-0.3); EOSINOPHILS % (AUTO) 1 % (0-10); HEMATOCRIT 42 % (35-52); HEMOGLOBIN 14.1 G/DL (11.5-16.0); LYMPHOCYTES # (AUTO) 1.7 X 10^3 (1.0-4.0); LYMPHOCYTES % (AUTO) 25 % (12-44); MEAN CORPUSCULAR HEMOGLOBIN 30 PG (25-34); MEAN CORPUSCULAR HGB CONC 34 G/DL (32-36); MEAN CORPUSCULAR VOLUME 88 FL (80-99); MEAN PLATELET VOLUME 9.8 FL (7.4-10.4); MONOCYTES # (AUTO) 0.5 X 10^3 (0.0-1.0); MONOCYTES % (AUTO) 7 % (0-12); NEUTROPHILS # (AUTO) 4.5 X 10^3 (1.8-7.8); NEUTROPHILS % (AUTO) 66 % (42-75); PLATELET COUNT 199 10^3/uL (130-400); RED CELL DISTRIBUTION WIDTH 13.6 % (10.0-14.5); WHITE BLOOD COUNT 6.9 10^3/uL (4.3-11.0)
[2019-02-23 16:05] LABS: ALANINE AMINOTRANSFERASE 20 U/L (0-55); ALBUMIN 4.2 GM/DL (3.2-4.5); ALKALINE PHOSPHATASE 78 U/L (40-136); BILIRUBIN,TOTAL 1.1 MG/DL (0.1-1.0); BUN/CREATININE RATIO 18; CALCIUM 9.6 MG/DL (8.5-10.1); CARBON DIOXIDE 25 MMOL/L (21-32); CHLORIDE 106 MMOL/L (98-107); CREATININE SERUM 0.79 MG/DL (0.60-1.30); GFR ESTIMATED > 60; GLUCOSE 88 MG/DL (70-105); POTASSIUM 4.1 MMOL/L (3.6-5.0); SODIUM 139 MMOL/L (135-145); TOTAL PROTEIN 6.9 GM/DL (6.4-8.2)
[2019-04-06] MEDS ORDERED: OMEP40CA36 PO (15:42)
== END 2019-05-24 | disposition home or self-care (01) ==
LOC: ONC 14:53
PROVIDERS: ATTEND Internal Medicine Hematology & Oncology
DX: D50.9 Iron deficiency anemia, unspecified (principal); K90.9 Intestinal malabsorption, unspecified
CPT/HCPCS: 36415; 80053; 82728; 85025; 99213

== ENCOUNTER 2019-04-10 10:38 | Day surgery (SDC) | payer BC ==
[~2019-04-10] VITALS: Ht 165.1 cm; Wt 77.1 kg
[2019-04-10] VITALS (10 sets, daily range): BP systolic 106–126; BP diastolic 62–83
[~2019-04-10 10:38] MED LIST changes: +OMEP40CA36 PO
[2019-04-10] MEDS ORDERED: NS IV 500 ML 500 ML IV PRN (10:52)
[2019-04-10] MEDS ORDERED: fentaNYL INJECTION 100 MCG/2 ML AMP IVP ONE (11:00)
[2019-04-10] MEDS ORDERED: HURRICAINE EXT TUBE (BENZOCAINE) XX PRN (11:00)
[2019-04-10] MEDS ORDERED: MIDAZOLAM 2 MG/2 ML (VERSED) VIAL IVP ONE (11:00)
[2019-04-10] MEDS ORDERED: LIDOCAINE JELLY 2% 6 ML SYRINGE MM PRN (11:00)
[2019-04-10] MEDS ORDERED: NS IV 500 ML 500 ML ONE (11:03)
[2019-04-10] MEDS ORDERED: MIDAZOLAM 2 MG/2 ML (VERSED) VIAL ONE ×4 (11:41)
[2019-04-10] MEDS ORDERED: LIDOCAINE JELLY 2% 6 ML SYRINGE ONE (11:41)
[2019-04-10] MEDS ORDERED: fentaNYL INJECTION 100 MCG/2 ML AMP ONE (11:41)
--- NOTE | 2019-04-10 13:12 | Conscious Sedation/ASA ---
Conscious Sedation Pre-Proced Time 12:00 ASA Score 2 For ASA 3 and 4: Consider anesthesia and medical clearance. Also, for patients with a history of failed moderate sedation consider anesthesia. Airway Lungs Heart ASA score ASA 1: a normal healthy patient ASA 2: a patient with a mild systemic disease (mid diabetes, controlled hypertension, obesity ASA 3: a patient with a severe systemic disease that limits activity (angina, COPD, prior Myocardial infarction) ASA 4: a patient with an incapacitating disease that is a constant threat to life (CHF, renal failure) ASA 5: a moribund patient not expected to survive 24 hrs. (ruptured aneurysm) ASA 6: a declared brain- patient whose organs are being harvested. For emergent operations, add the letter E after the classification Mallampati Classification Grade 2 Sedation Plan Analgesia, Amnesia, Plan communicated to team members, Discussed options with patient/fam, Discussed risks with patient/fam The patient is an appropriate candidate to undergo the planned procedure, sedation, and anesthesia. The patient immediately re-assessed prior to indication. KALEB FLORES MD Apr 10, 2019 13:11
--- NOTE | 2019-04-10 13:12 | Progress Note-Pre Operative ---
Pre-Operative Progress Note H&P Reviewed The H&P was reviewed, patient examined and no changes noted. Date Seen by Provider: Apr 10, 2019 Time Seen by Provider: 12:00 Date H&P Reviewed: Apr 10, 2019 Time H&P Reviewed: 12:00 Pre-Operative Diagnosis: hx hiatal hernia, gastric po/yp, persistent iron deficiency KALEB FLORES MD Apr 10, 2019 13:12
--- NOTE | 2019-04-10 13:14 | Progress Note-Post Operative ---
Post-Operative Progess Note Surgeon (s)/Cardiac Rehabilitation Specialist (s) Surgeon KALEB FLORES MD Cardiac Rehabilitation Specialist: none Pre-Operative Diagnosis hx hiatal hernia, gastric po/yp, persistent iron deficiency Post-Operative Diagnosis reflux esophagitis(stage 2), moderate HH(3cm), mild gastritis. Procedure & Operative Findings Date of Procedure 04/10/19 Procedure Performed/Findings EGD with bx. Anesthesia Type cs Estimated Blood Loss Estimated blood loss (mL): minimal Specimens/Packing Specimens Removed ge jxn, antrum KALEB FLORES MD Apr 10, 2019 13:14
[2019-04-10] MEDS ORDERED: HYDROcodone/APAP 5 MG/325 MG (LORTAB) TAB PO PRN (13:15)
[2019-04-10] MEDS ORDERED: morphine INJ 10 MG/ML 1ML (SYR OR VIAL) IVP PRN ×2 (13:15)
[2019-04-10] MEDS ORDERED: ONDANSETRON 4 MG/2 ML (SDV) Z0FRAN IVP PRN (13:15)
[2019-04-10] MEDS ORDERED: ACETAMINOPHEN 325 MG TABLET PO PRN (13:15)
--- NOTE | 2019-04-10 17:14 | OPERATIVE REPORT ---
DATE OF SERVICE: 04/10/2019 ATTENDING PRIMARY CARE PHYSICIAN: Dr. Puri. PREOPERATIVE DIAGNOSES: Iron deficiency anemia with history of gastroesophageal reflux disease and gastric polyp. POSTOPERATIVE DIAGNOSES: Reflux esophagitis stage II, moderate size hiatal hernia approximately 3 cm in size, mild gastritis. PROCEDURE: EGD with biopsy. SURGEON: Kaleb Flores MD ANESTHESIA: Conscious sedation. ESTIMATED BLOOD LOSS: Minimal. FINDINGS: Reflux esophagitis stage II, moderate size hiatal hernia approximately 3 cm in size, mild gastritis. DISPOSITION: The patient tolerated the procedure well. INDICATIONS: The patient is a 48-year-old female known to us. We had initially seen her in June 2017 for iron deficiency and vitamin B12 deficiency anemia. She had stated that this had been going on for the past 5 to 6 years. She has had multiple studies, which have shown decreased levels of iron and vitamin B12; however, she states that the vitamin B12 levels have been stabilized. She does have a history of peptic ulcer disease and gastroesophageal reflux disease and was initially started on Nexium; however, was switched to Prilosec. She states right now, she does not have any symptomatic heartburn or reflux as well as no nausea or vomiting. She also does not report any hematemesis or coffee-ground emesis. She was found to have a small gastric polyp, which was found to be benign. She is having persistent iron deficiency anemia and at the request of hematology, the recommendation was to proceed with a followup EGD. DESCRIPTION OF PROCEDURE: The patient was brought to the endoscopy suite, laid in the left lateral decubitus position with head elevated. After adequate IV pain and sedating medications and conscious sedation anesthesia, the mouthpiece was applied. The endoscope was then placed in the mouth, visualizing the pharynx and hypopharyngeal region. Vocal cords, epiglottis and vallecula identified and appeared to be normal. The endoscope was gently abated, esophageal opening and esophagus insufflated. The endoscope was then advanced to the first, second and third portion of the esophagus at the level of GE junction, a reflux esophagitis stage II identified. There were no ulcers or strictures identified in this region. A biopsy was taken of the GE junction with forceps with visualization of good hemostasis. The endoscope was then advanced in the stomach and endoscope retroflexed, visualizing a hiatal hernia approximately 3 cm in size. There was mild gastritis. No formal ulcerations, polyps, or any neoplasms. A biopsy was taken of the antrum to rule out H. pylori with visualization of good hemostasis. The endoscope was then advanced to the pylorus and the first and second portion of the duodenum, which appeared normal with no distal obstructions. The endoscope was then slowly withdrawn while taking a second look and suctioning residual air with no additional findings. The patient tolerated the procedure well. We will recommend continued medical management with the necessary lifestyle and diet accommodation including avoidance of caffeinated beverages, spicy, greasy and acidic foods as well as caffeinated beverages and alcohol. She may continue with Prilosec daily as well. She does have a moderate size hiatal hernia, which may continue to cause problems; however, she is currently asymptomatic; however, if she does have recurrent reflux or development of regurgitation or dysphagia, she may need to have this reevaluated. Job ID: [id number] DocumentID: [id number] Dictated Date: 04/10/2019 12:21:57 It Associate Date: 04/10/2019 17:13:10 Dictated By: KALEB FLORES MD
== END 2019-04-10 13:15 | disposition home or self-care (01) ==
LOC: ENDO 10:38
PROVIDERS: ATTEND Surgery
DX: K21.0 Gastro-esophageal reflux disease with esophagitis (principal); K44.9 Diaphragmatic hernia without obstruction or gangrene; K29.70 Gastritis, unspecified, without bleeding; K31.89 Other diseases of stomach and duodenum; D50.9 Iron deficiency anemia, unspecified; E53.8 Deficiency of other specified B group vitamins; Z87.19 Personal history of other diseases of the digestive system; Z87.11 Personal history of peptic ulcer disease; Z80.1 Family history of malignant neoplasm of trachea, bronchus and lung; Z80.42 Family history of malignant neoplasm of prostate
CPT/HCPCS: 84703

== ENCOUNTER 2019-06-11 08:42 | Outpatient (RCR) | payer BC ==
[2019-06-05 09:28] LABS: BASOPHILS % (AUTO) 1 % (0-10); EOSINOPHILS # (AUTO) 0.1 10^3/uL (0.0-0.3); EOSINOPHILS % (AUTO) 1 % (0-10); HEMATOCRIT 41 % (35-52); HEMOGLOBIN 14.1 G/DL (11.5-16.0); LYMPHOCYTES # (AUTO) 1.3 X 10^3 (1.0-4.0); LYMPHOCYTES % (AUTO) 30 % (12-44); MEAN CORPUSCULAR HEMOGLOBIN 30 PG (25-34); MEAN CORPUSCULAR HGB CONC 34 G/DL (32-36); MEAN CORPUSCULAR VOLUME 88 FL (80-99); MEAN PLATELET VOLUME 9.8 FL (7.4-10.4); MONOCYTES # (AUTO) 0.2 X 10^3 (0.0-1.0); MONOCYTES % (AUTO) 4 % (0-12); NEUTROPHILS # (AUTO) 2.6 X 10^3 (1.8-7.8); NEUTROPHILS % (AUTO) 64 % (42-75); PLATELET COUNT 176 10^3/uL (130-400); RED CELL DISTRIBUTION WIDTH 13.6 % (10.0-14.5); WHITE BLOOD COUNT 4.2 10^3/uL (4.3-11.0)
[2019-06-05 09:47] LABS: ALANINE AMINOTRANSFERASE 14 U/L (0-55); ALBUMIN 4.3 GM/DL (3.2-4.5); ALKALINE PHOSPHATASE 82 U/L (40-136); BILIRUBIN,TOTAL 1.3 MG/DL (0.1-1.0); BUN/CREATININE RATIO 14; CALCIUM 9.3 MG/DL (8.5-10.1); CARBON DIOXIDE 26 MMOL/L (21-32); CHLORIDE 107 MMOL/L (98-107); CREATININE SERUM 0.77 MG/DL (0.60-1.30); GFR ESTIMATED > 60; GLUCOSE 101 MG/DL (70-105); POTASSIUM 4.1 MMOL/L (3.6-5.0); SODIUM 141 MMOL/L (135-145); TOTAL PROTEIN 6.8 GM/DL (6.4-8.2)
[~2019-06-11 08:42] MED LIST changes: +OMEP40CA27 PO; -OMEP40CA36 PO
== END 2019-09-03 | disposition home or self-care (01) ==
LOC: ONC 08:42
PROVIDERS: ATTEND Internal Medicine Hematology & Oncology
DX: D50.0 Iron deficiency anemia secondary to blood loss (chronic) (principal); K90.9 Intestinal malabsorption, unspecified; K20.9 Esophagitis, unspecified; K44.9 Diaphragmatic hernia without obstruction or gangrene; N92.0 Excessive and frequent menstruation with regular cycle; E80.6 Other disorders of bilirubin metabolism; K64.9 Unspecified hemorrhoids; K92.1 Melena; K29.50 Unspecified chronic gastritis without bleeding
CPT/HCPCS: 36415; 80053; 82728; 85025; 99213

== ENCOUNTER 2020-01-28 12:33 | Outpatient (RCR) | payer BC ==
[2019-12-07 10:26] LABS: BASOPHILS % (AUTO) 1 % (0-10); EOSINOPHILS # (AUTO) 0.1 10^3/uL (0.0-0.3); EOSINOPHILS % (AUTO) 1 % (0-10); HEMATOCRIT 40 % (35-52); HEMOGLOBIN 13.8 G/DL (11.5-16.0); LYMPHOCYTES # (AUTO) 1.6 X 10^3 (1.0-4.0); LYMPHOCYTES % (AUTO) 32 % (12-44); MEAN CORPUSCULAR HEMOGLOBIN 30 PG (25-34); MEAN CORPUSCULAR HGB CONC 34 G/DL (32-36); MEAN CORPUSCULAR VOLUME 88 FL (80-99); MEAN PLATELET VOLUME 9.7 FL (7.4-10.4); MONOCYTES # (AUTO) 0.4 X 10^3 (0.0-1.0); MONOCYTES % (AUTO) 8 % (0-12); NEUTROPHILS # (AUTO) 2.9 X 10^3 (1.8-7.8); NEUTROPHILS % (AUTO) 58 % (42-75); PLATELET COUNT 189 10^3/uL (130-400); RED CELL DISTRIBUTION WIDTH 13.4 % (10.0-14.5)
[2019-12-07 10:50] LABS: ALANINE AMINOTRANSFERASE 10 U/L (0-55); ALBUMIN 4.2 GM/DL (3.2-4.5); ALKALINE PHOSPHATASE 80 U/L (40-136); BILIRUBIN,TOTAL 1.2 MG/DL (0.1-1.0); BUN/CREATININE RATIO 15; CALCIUM 9.1 MG/DL (8.5-10.1); CARBON DIOXIDE 24 MMOL/L (21-32); CHLORIDE 109 MMOL/L (98-107); CREATININE SERUM 0.75 MG/DL (0.60-1.30); GFR ESTIMATED > 60; GLUCOSE 81 MG/DL (70-105); POTASSIUM 4.1 MMOL/L (3.6-5.0); SODIUM 141 MMOL/L (135-145); TOTAL PROTEIN 6.4 GM/DL (6.4-8.2)
[~2020-01-28 12:33] MED LIST changes: +FERRIC CARBOXYMALTOSE (CANCER) 750 MG in NS (IVPB) CANCER CENTER 250 ML IV SCH
[2020-01-28 14:39] LABS: BASOPHILS % (AUTO) 1 % (0-10); EOSINOPHILS # (AUTO) 0.1 10^3/uL (0.0-0.3); EOSINOPHILS % (AUTO) 1 % (0-10); HEMATOCRIT 41 % (35-52); HEMOGLOBIN 14.2 G/DL (11.5-16.0); LYMPHOCYTES # (AUTO) 1.6 X 10^3 (1.0-4.0); LYMPHOCYTES % (AUTO) 24 % (12-44); MEAN CORPUSCULAR HEMOGLOBIN 31 PG (25-34); MEAN CORPUSCULAR HGB CONC 35 G/DL (32-36); MEAN CORPUSCULAR VOLUME 91 FL (80-99); MONOCYTES # (AUTO) 0.4 X 10^3 (0.0-1.0); MONOCYTES % (AUTO) 6 % (0-12); NEUTROPHILS # (AUTO) 4.5 X 10^3 (1.8-7.8); NEUTROPHILS % (AUTO) 69 % (42-75); PLATELET COUNT 195 10^3/uL (130-400); RED CELL DISTRIBUTION WIDTH 14.1 % (10.0-14.5); WHITE BLOOD COUNT 6.6 10^3/uL (4.3-11.0)
== END 2020-03-06 | disposition home or self-care (01) ==
LOC: ONC 12:33
PROVIDERS: ATTEND Internal Medicine Hematology & Oncology
DX: D50.0 Iron deficiency anemia secondary to blood loss (chronic) (principal); K90.9 Intestinal malabsorption, unspecified; K20.9 Esophagitis, unspecified; K44.9 Diaphragmatic hernia without obstruction or gangrene; N92.0 Excessive and frequent menstruation with regular cycle; E80.6 Other disorders of bilirubin metabolism; K64.9 Unspecified hemorrhoids; K92.1 Melena; K29.50 Unspecified chronic gastritis without bleeding; Z79.899 Other long term (current) drug therapy; Z98.890 Other specified postprocedural states
CPT/HCPCS: 80053; 82728; 85025; 96365; 96367

== ENCOUNTER → 2020-02-05 | Outpatient (CLI) | payer BC ==
[~2020-02-05] MED LIST changes: -FERRIC CARBOXYMALTOSE (CANCER) 750 MG in NS (IVPB) CANCER CENTER 250 ML IV SCH
--- NOTE | 2020-02-05 12:10 | Diagnostic Imaging Report ---
EXAMINATION: Digital mammogram INDICATION: Bilateral screening This study was compared to the prior exams of 02/06/2019, 01/24/2018 and 01/18/2017. At this time there are no current complaints. The current study was also evaluated with a Computer Aided Detection (CAD) system. FINDINGS: There are scattered fibroglandular densities in both breasts which could obscure a lesion. Overall, there does not appear to have been any significant change when compared to the prior exam. No primary or secondary sign of malignancy is noted. IMPRESSION: There is no radiographic evidence for malignancy. ACR BI-RADS Category 1: Negative. Result letter will be mailed to the patient. Note: At least 10% of breast cancer is not imaged by mammography. Dictated by: Dictated on workstation # [id number]
== END ==
LOC: RAD 11:13
PROVIDERS: ATTEND Obstetrics & Gynecology
DX: Z12.31 Encounter for screening mammogram for malignant neoplasm of breast (principal)
CPT/HCPCS: 77063; 77067

== ENCOUNTER 2020-06-10 09:53 | Outpatient (RCR) | payer BC ==
[2020-06-03 08:56] LABS: BASOPHILS # (AUTO) 0.1 10^3/uL (0.0-0.1); BASOPHILS % (AUTO) 1 % (0-10); EOSINOPHILS # (AUTO) 0.1 10^3/uL (0.0-0.3); EOSINOPHILS % (AUTO) 1 % (0-10); HEMATOCRIT 42 % (35-52); HEMOGLOBIN 14.4 g/dL (11.5-16.0); LYMPHOCYTES # (AUTO) 1.4 10^3/uL (1.0-4.0); LYMPHOCYTES % (AUTO) 30 % (12-44); MEAN CORPUSCULAR HEMOGLOBIN 31 pg (25-34); MEAN CORPUSCULAR HGB CONC 34 g/dL (32-36); MEAN CORPUSCULAR VOLUME 92 fL (80-99); MEAN PLATELET VOLUME 9.6 fL (9.0-12.2); MONOCYTES # (AUTO) 0.3 10^3/uL (0.0-1.0); MONOCYTES % (AUTO) 8 % (0-12); NEUTROPHILS # (AUTO) 2.7 10^3/uL (1.8-7.8); NEUTROPHILS % (AUTO) 60 % (42-75); PLATELET COUNT 172 10^3/uL (130-400); WHITE BLOOD COUNT 4.5 10^3/uL (4.3-11.0)
[2020-06-03 09:21] LABS: ALANINE AMINOTRANSFERASE 17 U/L (0-55); ALBUMIN 4.4 GM/DL (3.2-4.5); ALKALINE PHOSPHATASE 80 U/L (40-136); BILIRUBIN,TOTAL 1.5 MG/DL (0.1-1.0); BUN/CREATININE RATIO 19; CALCIUM 9.6 MG/DL (8.5-10.1); CARBON DIOXIDE 26 MMOL/L (21-32); CHLORIDE 106 MMOL/L (98-107); CREATININE SERUM 0.81 MG/DL (0.60-1.30); GFR ESTIMATED > 60; GLUCOSE 72 MG/DL (70-105); POTASSIUM 4.1 MMOL/L (3.6-5.0); SODIUM 142 MMOL/L (135-145); TOTAL PROTEIN 7.4 GM/DL (6.4-8.2)
== END 2020-09-01 | disposition home or self-care (01) ==
LOC: ONC 09:53
PROVIDERS: ATTEND Internal Medicine Hematology & Oncology
DX: D50.0 Iron deficiency anemia secondary to blood loss (chronic) (principal); K90.9 Intestinal malabsorption, unspecified; K20.90 Esophagitis, unspecified without bleeding; K44.9 Diaphragmatic hernia without obstruction or gangrene; N92.0 Excessive and frequent menstruation with regular cycle; E80.6 Other disorders of bilirubin metabolism; K64.9 Unspecified hemorrhoids; K92.1 Melena; K29.50 Unspecified chronic gastritis without bleeding; Z79.899 Other long term (current) drug therapy; Z98.890 Other specified postprocedural states
CPT/HCPCS: 80053; 82728; 85025; 99213

== ENCOUNTER 2021-01-27 08:14 | Outpatient (RCR) | payer BC ==
[2021-01-19 15:09] LABS: BASOPHILS % (AUTO) 0 % (0-10); EOSINOPHILS # (AUTO) 0.1 10^3/uL (0.0-0.3); EOSINOPHILS % (AUTO) 1 % (0-10); HEMATOCRIT 42 % (35-52); HEMOGLOBIN 14.6 g/dL (11.5-16.0); LYMPHOCYTES # (AUTO) 1.4 10^3/uL (1.0-4.0); LYMPHOCYTES % (AUTO) 26 % (12-44); MEAN CORPUSCULAR HEMOGLOBIN 32 pg (25-34); MEAN CORPUSCULAR HGB CONC 35 g/dL (32-36); MEAN CORPUSCULAR VOLUME 91 fL (80-99); MEAN PLATELET VOLUME 9.6 fL (9.0-12.2); MONOCYTES # (AUTO) 0.4 10^3/uL (0.0-1.0); MONOCYTES % (AUTO) 7 % (0-12); NEUTROPHILS # (AUTO) 3.5 10^3/uL (1.8-7.8); NEUTROPHILS % (AUTO) 65 % (42-75); PLATELET COUNT 192 10^3/uL (130-400); WHITE BLOOD COUNT 5.4 10^3/uL (4.3-11.0)
[2021-01-19 15:28] LABS: ALANINE AMINOTRANSFERASE 16 U/L (0-55); ALBUMIN 4.3 GM/DL (3.2-4.5); ALKALINE PHOSPHATASE 78 U/L (40-136); BILIRUBIN,TOTAL 1.7 MG/DL (0.1-1.0); BUN/CREATININE RATIO 13; CALCIUM 9.5 MG/DL (8.5-10.1); CARBON DIOXIDE 25 MMOL/L (21-32); CHLORIDE 107 MMOL/L (98-107); CREATININE SERUM 0.83 MG/DL (0.60-1.30); GFR ESTIMATED > 60; GLUCOSE 102 MG/DL (70-105); POTASSIUM 3.8 MMOL/L (3.6-5.0); SODIUM 140 MMOL/L (135-145); TOTAL PROTEIN 7.4 GM/DL (6.4-8.2)
[~2021-01-27 08:14] MED LIST changes: -OMEP40CA27 PO; +OMEP40CA6 PO
== END 2021-04-19 | disposition home or self-care (01) ==
LOC: ONC 08:14
PROVIDERS: ATTEND Internal Medicine Hematology & Oncology
DX: D50.0 Iron deficiency anemia secondary to blood loss (chronic) (principal); N92.0 Excessive and frequent menstruation with regular cycle; K21.00 Gastro-esophageal reflux disease with esophagitis, without bleeding; K29.70 Gastritis, unspecified, without bleeding; E80.6 Other disorders of bilirubin metabolism; Z79.899 Other long term (current) drug therapy; Z79.890 Hormone replacement therapy
CPT/HCPCS: 80053; 82728; 85025; 99213

== ENCOUNTER → 2021-02-06 | Outpatient (CLI) | payer BC ==
--- NOTE | 2021-02-07 12:44 | Diagnostic Imaging Report ---
INDICATION: Routine screening. COMPARISON: 02/05/2020 and 02/06/2019. TECHNIQUE: 2D and 3D bilateral screening mammography was performed with CAD. FINDINGS: Scattered fibroglandular densities are identified bilaterally. The parenchymal pattern is stable. No mass or malignant appearing microcalcifications are seen. There are benign calcifications noted. The axillae are unremarkable. IMPRESSION: No mammographic features suspicious for malignancy are identified. ACR BI-RADS Category 2: Benign findings. Result letter will be mailed to the patient. Note: At least 10% of breast cancer is not imaged by mammography. Dictated by: Dictated on workstation # [id number]
== END ==
LOC: RAD 15:07
PROVIDERS: ATTEND Obstetrics & Gynecology
DX: Z12.31 Encounter for screening mammogram for malignant neoplasm of breast (principal)
CPT/HCPCS: 77063; 77067

== ENCOUNTER 2021-07-14 08:51 | Outpatient (RCR) | payer BC ==
[2021-07-03 15:58] LABS: BASOPHILS % (AUTO) 0 % (0-10); EOSINOPHILS # (AUTO) 0.1 10^3/uL (0.0-0.3); EOSINOPHILS % (AUTO) 1 % (0-10); HEMATOCRIT 41 % (35-52); LYMPHOCYTES # (AUTO) 1.8 X 10^3 (1.0-4.0); LYMPHOCYTES % (AUTO) 26 % (12-44); MEAN CORPUSCULAR HEMOGLOBIN 31 pg (25-34); MEAN CORPUSCULAR HGB CONC 34 g/dL (32-36); MEAN CORPUSCULAR VOLUME 90 fL (80-99); MEAN PLATELET VOLUME 9.2 fL (9.0-12.2); MONOCYTES # (AUTO) 0.4 X 10^3 (0.0-1.0); MONOCYTES % (AUTO) 6 % (0-12); NEUTROPHILS # (AUTO) 4.7 X 10^3 (1.8-7.8); NEUTROPHILS % (AUTO) 67 % (42-75); PLATELET COUNT 212 10^3/uL (130-400); WHITE BLOOD COUNT 7.1 10^3/uL (4.3-11.0)
[2021-07-03 16:13] LABS: ALBUMIN 4.2 GM/DL (3.2-4.5); BILIRUBIN,TOTAL 1.2 MG/DL (0.1-1.0); CALCIUM 9.4 MG/DL (8.5-10.1); CREATININE SERUM 0.88 MG/DL (0.60-1.30); POTASSIUM 4.1 MMOL/L (3.6-5.0)
== END 2021-08-11 | disposition home or self-care (01) ==
LOC: ONC 08:51
PROVIDERS: ATTEND Internal Medicine Hematology & Oncology
DX: D50.0 Iron deficiency anemia secondary to blood loss (chronic) (principal); N92.0 Excessive and frequent menstruation with regular cycle; K21.00 Gastro-esophageal reflux disease with esophagitis, without bleeding; K29.70 Gastritis, unspecified, without bleeding; E80.6 Other disorders of bilirubin metabolism; Z79.899 Other long term (current) drug therapy; Z98.890 Other specified postprocedural states
CPT/HCPCS: 80053; 82728; 85025; 99213

== ENCOUNTER → 2021-07-27 | Outpatient (CLI) | payer BC ==
--- NOTE | 2021-07-27 08:18 | Diagnostic Imaging Report ---
EXAMINATION: US Abdomen limited. TECHNIQUE: Multiple real-time grayscale images were obtained over the right upper quadrant in various projections. HISTORY: Right upper quadrant pain COMPARISON: None available. FINDINGS: The liver is normal in size. The liver is normal in echogenicity. No focal lesions are seen. The portal vein is patent with hepatopedal flow. Gallbladder is normal without wall thickening or pericholecystic fluid. Sonographic Arevalo sign is negative. Common duct is obscured. There is no biliary ductal dilation. Pancreas is obscured. The right kidney is normal without hydronephrosis. IMPRESSION: 1. Unremarkable right upper quadrant ultrasound. Dictated by: Dictated on workstation # [id number]
== END ==
LOC: RAD 07:15
PROVIDERS: ATTEND Surgery
DX: R10.11 Right upper quadrant pain (principal)
CPT/HCPCS: 76705

== ENCOUNTER → 2021-09-01 | Outpatient (CLI) | payer BC ==
--- NOTE | 2021-09-01 12:38 | Diagnostic Imaging Report ---
Indication: Right upper quadrant pain. Patient was administered 5.1 mCi technetium 99m Choletec intravenously and imaging over the abdomen was performed. At 45 minutes patient ingested 8 ounces of ensure and the gallbladder ejection fraction was calculated. There is homogeneous uptake of activity by the liver with prompt excretion of activity into the common duct and gallbladder. There is normal passage of activity into the small bowel. Gallbladder ejection fraction is abnormally low at 13%. Normal values are 35% or greater. IMPRESSION: 1. Patent cystic duct and common bile duct. 2. Low gallbladder ejection fraction of 13%. Dictated by: Dictated on workstation # [id number]
== END ==
LOC: CARD 07:47
PROVIDERS: ATTEND Surgery
DX: R10.11 Right upper quadrant pain (principal)
CPT/HCPCS: 78227; A9537

== ENCOUNTER → 2021-09-11 | Outpatient (RCR) | payer BC ==
[~2021-09-11] VITALS: Ht 165.1 cm; Wt 81.8 kg
== END | disposition home or self-care (01) ==
LOC: PREOP 05:39
PROVIDERS: ATTEND Surgery
DX: Z01.818 Encounter for other preprocedural examination (principal)

== ENCOUNTER 2021-10-11 05:30 | Outpatient (RCR) | payer BC ==
[2021-10-13] MEDS ORDERED: NEBI2.5T5 PO (10:26)
[2021-10-13] MEDS ORDERED: BUPR150T24 PO (10:26)
[2021-10-13] MEDS ORDERED: ESTR10TA9 PO (10:26)
[2021-10-13] MEDS ORDERED: PANT40TA52 PO (12:32)
[2021-10-13] MEDS ORDERED: SIME80TA16 PO (12:32)
== END 2021-11-09 | disposition home or self-care (01) ==
LOC: PREOP 05:30
PROVIDERS: ATTEND Surgery
DX: Z01.812 Encounter for preprocedural laboratory examination (principal); K21.9 Gastro-esophageal reflux disease without esophagitis; Z20.822 Contact with and (suspected) exposure to COVID-19; Z87.19 Personal history of other diseases of the digestive system
CPT/HCPCS: 87636

== ENCOUNTER 2021-10-13 09:57 | Day surgery (SDC) | payer BC ==
--- NOTE | 2021-09-11 07:23 | HISTORY AND PHYSICAL ---
DATE OF SERVICE: DATE OF SERVICE: 09/15/2021 ATTENDING PRIMARY CARE PHYSICIAN: Diandra Puri DO. HISTORY OF PRESENT ILLNESS: The patient is a 51-year-old female who was seen for complaints of increasing reflux as well as a bloating. She denied any diarrhea or constipation, but does report that she has had previous EGDs in the past where she had 2 to 3 stomach polyps identified with her last one being in 2019, which also showed gastritis. She was recently seen by hematology/oncology for an iron infusion. She denied any nausea or vomiting, but it was recommended by them for her to have a followup EGD. She does have a longstanding history of reflux and does currently take PPIs. She denies any right upper quadrant pain and is unsure if any specific foods trigger her symptoms. She did have a recent abdominoplasty on 08/01/2021. She also had a recent gallbladder ultrasound, which was unremarkable and then underwent a HIDA scan, which did show a low ejection fraction of 13%, consistent with a biliary dyskinesia. She did report reproduction of symptoms during the test. PAST MEDICAL HISTORY: Reflux, anxiety. PAST SURGICAL HISTORY: Bladder sling 2018, section x2 in 2007 and 2010, leg vein ablation in 2000, abdominoplasty 08/01/2021. ALLERGIES: NO KNOWN DRUG ALLERGIES. MEDICATIONS: Bupropion and Nexium. SOCIAL HISTORY: Negative for tobacco smoke. Rare for alcohol. FAMILY HISTORY: Brother, pancreatic cancer. Father, prostate cancer. VITAL SIGNS: Blood pressure is 162/98. Current weight is 180 pounds at 5 feet 5 inches with a body mass index is 29.9. REVIEW OF SYSTEMS: This is a well-nourished female in no acute distress. She is not experiencing any shortness of breath or difficulty breathing. No chest pain, palpitations or diaphoresis. She does report episodes of reflux and bloating sensation, but denies any significant abdominal pain as well as no nausea or vomiting. She also denies any diarrhea or constipation as well as no red blood per rectum nor any dark tarry stools. No fever or chills. No recent inadvertent weight loss. All other review of systems negative. PHYSICAL EXAMINATION: CHEST: Clear. Good breath sounds bilaterally. HEART: Regular, no murmurs. EXTREMITIES: No lower extremity edema. Negative Homans sign. HEENT: No scleral icterus. NECK: No cervical lymphadenopathy. ABDOMEN: Soft, nontender, nondistended. SKIN: Warm, dry and pink. NEUROLOGIC: Awake, alert and oriented x3. ASSESSMENT AND PLAN: A 51-year-old female with symptomatic gastroesophageal reflux disease. At this time, we will proceed with scheduling her for an EGD with biopsies as appropriate. She also has a biliary dyskinesia; however, was instructed that she will need to wait at least 1 year, before proceeding with surgical intervention after her abdominoplasty and thus will have her follow up when that time comes. Job ID: [id number] DocumentID: [id number] Dictated Date: 09/08/2021 10:04:06 In Home Tutor Date: 09/08/2021 11:24:25 Dictated By: DORENE RUIZ
[~2021-10-13] VITALS: Ht 165.1 cm; Wt 81.8 kg
[2021-10-13] MEDS ORDERED: LACTATED RINGERS 1,000 ML IV STA (09:59)
[2021-10-13] MEDS ORDERED: LIDOCAINE JELLY 2% 6 ML SYRINGE MM PRN (10:00)
[2021-10-13] MEDS ORDERED: HURRICAINE EXT TUBE (BENZOCAINE) XX PRN (10:00)
[2021-10-13] MEDS ORDERED: LACTATED RINGERS 1,000 ML IV ONE (10:01)
[2021-10-13] MEDS ORDERED: ESTR10TA9 PO (10:26)
[2021-10-13] MEDS ORDERED: BUPR150T24 PO (10:26)
[2021-10-13] MEDS ORDERED: NEBI2.5T5 PO (10:26)
[2021-10-13 10:27] VITALS: BP 136/112
[2021-10-13] MEDS ORDERED: proPOfol 200 MG/20 ML (DIPRIVAN) VIAL IV ONE ×2 (11:28→11:53)
--- NOTE | 2021-10-13 11:44 | Progress Note-Pre Operative ---
Pre-Operative Progress Note H&P Reviewed The H&P was reviewed, patient examined and no changes noted. Date Seen by Provider: Oct 13, 2021 Time Seen by Provider: 11:00 Date H&P Reviewed: Oct 13, 2021 Time H&P Reviewed: 11:00 Pre-Operative Diagnosis: GERD, PUD KALEB FLORES MD Oct 13, 2021 11:44
[2021-10-13] MEDS ORDERED: ONDANSETRON 4 MG (ZOFRAN) ORAL DISSOLVE TAB PO PRN (11:45)
[2021-10-13] MEDS ORDERED: ONDANSETRON 4 MG/2 ML (SDV) Z0FRAN IVP PRN (11:45)
--- NOTE | 2021-10-13 11:45 | Discharge Inst-Surgical ---
D/C Lap Instructions-KIDO New, Converted, or Re-Newed RX: RX on Chart Follow Up Appt in 2 weeks Activity as tolerated Avoid Alcohol, Caffeine, Spicy [place] and Acid foods. Drink 64 fluid oz or more of fluids per day. Symptoms to Report: Fever over 101 degree F, Nausea/Vomiting If any problems/questions: Contact your physician or go to Emergency Room KALEB FLORES MD Oct 13, 2021 11:45
[2021-10-13] MEDS ORDERED: ESMOLOL 100 MG/10 ML (BREVIBLOC) VIAL ONE (11:49)
[2021-10-13 12:10] VITALS: BP 133/87
[2021-10-13 12:15] VITALS: BP 115/76
[2021-10-13 12:20] VITALS: BP 120/84
--- NOTE | 2021-10-13 12:26 | Progress Note-Post Operative ---
Post-Operative Progess Note Surgeon (s)/Brand Development Manager (s) Surgeon KALEB FLORES MD Brand Development Manager: none Pre-Operative Diagnosis GERD, PUD Post-Operative Diagnosis reflux esophagitis(grade b-c), moderate HH(3.5cm), moderate gastritis. Procedure & Operative Findings Date of Procedure 10/13/21 Procedure Performed/Findings EGD with bx Anesthesia Type mac Estimated Blood Loss Estimated blood loss (mL): minimal Specimens/Packing Specimens Removed ge jxn, antrum KALEB FLORES MD Oct 13, 2021 12:26
[2021-10-13] MEDS ORDERED: PANT40TA52 PO (12:32)
[2021-10-13] MEDS ORDERED: SIME80TA16 PO (12:32)
[2021-10-13 12:43] VITALS: BP 128/86
--- NOTE | 2021-10-13 13:36 | Anesthesia-General Post-Op ---
MAC Patient Condition Mental Status/LOC: Same as Preop Cardiovascular: Satisfactory Nausea/Vomiting: Absent Respiratory: Satisfactory Pain: Controlled Complications: Absent Post Op Complications Complications None Follow Up Care/Instructions Patient Instructions None needed. Anesthesiology Discharge Order Discharge Order Patient was doing well after the procedure, no complaints, stable vital signs, no apparent adverse anesthesia problems. AISLINN MYERS DO Oct 13, 2021 13:36
--- NOTE | 2021-10-13 17:10 | OPERATIVE REPORT ---
DATE OF SERVICE: 10/13/2021 ATTENDING PRIMARY CARE PHYSICIAN: Diandra Puri DO PREOPERATIVE DIAGNOSES: Increased belching, flatus, gastritis, worsening gastroesophageal reflux disease. POSTOPERATIVE DIAGNOSES: Reflux esophagitis between [place] grade between grade B-C, hiatal hernia approximately 3.5 cm in size, moderate gastritis. PROCEDURE: EGD with biopsy. SURGEON: Kaleb Flores MD. ANESTHESIA: Monitored anesthesia care. ESTIMATED BLOOD LOSS: Minimal. FINDINGS: Same as postoperative diagnoses. DISPOSITION: The patient tolerated the procedure well. INDICATIONS: The patient is a 51-year-old female with bloating as well as increased belching and worsening reflux; however, she also states that she has had worsening issues with flatus. She has had a previous EGD in 2017, which did show some gastritis. She reports that her symptoms have worsened. She has developed increased belching as well as flatus. DESCRIPTION OF PROCEDURE: The patient was brought to the endoscopy suite, laid in the left lateral decubitus position. After adequate IV pain and sedative medications and monitored anesthesia care, the mouthpiece was applied. The endoscope was placed in the mouth, visualizing the pharynx and hypopharyngeal region. Vocal cords, epiglottis and vallecula identified and appeared to be normal. The endoscope was then gently intubated, esophageal opening and esophagus insufflated. The endoscope was then advanced to the first, second and third portion of esophagus. At the level of the mid esophagus, there did appear to be some mucosal changes. A biopsy was taken with forceps with visualization of good hemostasis. The GE junction was also intrathoracic consistent with a hiatal hernia. There was also [place] between grade B and C reflux esophagitis. Biopsy was taken with forceps with visualization of good hemostasis. The endoscope was advanced in the stomach and endoscope retroflexed, visualizing a moderate size hiatal hernia approximately 3.5 cm in size. There was a moderate gastritis noted and a biopsy was taken of the antrum to rule out H. pylori with visualization of good hemostasis. The endoscope was then advanced to the pylorus and the first and second portion of the duodenum, which appeared normal with no distal obstructions or any ulcerations. Endoscope was then slowly withdrawn while taking a second look and suctioning of residual air with no additional findings. The patient tolerated the procedure well. We will await the biopsy results; however, we will recommend the necessary lifestyle and dietary accommodation including small and more frequent meals, avoiding eating at night as well as head elevation while lying supine. We will also start her on pantoprazole 40 mg to be taken at a separate time during the day from her Nexium. We will also proceed with Mylicon chewables to be taken on a p.r.n. basis. Job ID: [id number] DocumentID: [id number] Dictated Date: 10/13/2021 12:19:01 Auto Service Representative Date: 10/13/2021 17:09:48 Dictated By: KALEB FLORES MD [facility]
== END 2021-10-13 12:50 | disposition home or self-care (01) ==
LOC: ENDO 09:57
PROVIDERS: ATTEND Surgery
DX: K21.00 Gastro-esophageal reflux disease with esophagitis, without bleeding (principal); K44.9 Diaphragmatic hernia without obstruction or gangrene; K29.70 Gastritis, unspecified, without bleeding; K82.8 Other specified diseases of gallbladder
CPT/HCPCS: 84703

== ENCOUNTER → 2022-02-15 | Outpatient (CLI) | payer BC ==
[~2022-02-15] MED LIST changes: +BUPR150T24 PO; +ESTR10TA9 PO; +NEBI2.5T5 PO; +PANT40TA52 PO; +SIME80TA16 PO
--- NOTE | 2022-02-16 09:36 | Diagnostic Imaging Report ---
INDICATION: Routine screening. Comparison is made with prior mammogram 02/06/2021 and 02/05/2020. 2-D and 3-D bilateral screening mammography was performed with CAD. Scattered fibroglandular densities are identified bilaterally. No mass or malignant-appearing microcalcifications are seen. There are scattered benign calcifications noted. Axillae are unremarkable. IMPRESSION: No mammographic features suspicious for malignancy are identified. ACR BI-RADS Category 2: Benign findings. Result letter will be mailed to the patient. Note: At least 10% of breast cancer is not imaged by mammography. BI-RADS Category 2 Dictated by: Dictated on workstation # [id number]
== END ==
LOC: RAD 15:21
PROVIDERS: ATTEND Surgery
DX: Z12.31 Encounter for screening mammogram for malignant neoplasm of breast (principal)
CPT/HCPCS: 77063; 77067

== ENCOUNTER 2022-08-02 10:02 | Day surgery (SDC) | payer BC ==
--- NOTE | 2022-07-25 18:24 | HISTORY AND PHYSICAL ---
DATE OF SERVICE: 08/02/2022 PROCEDURE DATE: 08/02/2022. ATTENDING PRIMARY CARE PHYSICIAN: Dr. Jessica Mccloud. HISTORY OF PRESENT ILLNESS: The patient is a 52-year-old female, who is known to us. She was initially seen in 06/2017 for iron deficiency anemia and vitamin B12 deficiency anemia. She has stated that this had been going on for the past 5 to 6 years. She had multiple studies, which did show decreased levels of iron and vitamin B12; however, she states that the vitamin B12 levels did stabilize. She does have a history of peptic ulcer disease and gastroesophageal reflux disease and was initially started on Nexium, however, was switched to Prilosec. On 04/10/2019, she underwent an EGD with biopsy. Findings were reflux esophagitis, stage II, moderate size hiatal hernia approximately 3 cm in size and a mild gastritis. Biopsies were negative for H. pylori as well as negative for Morrison's esophagus. On today's visit, she has been complaining of right upper quadrant abdominal pain for the past year or more. She denies any nausea or vomiting as well as no diarrhea or constipation. She does report bloating as well as reflux. She reports that she did have an abdominoplasty on 08/01/2021 and reports that she had to wait until this year for any surgery. She did undergo a gallbladder ultrasound, which was negative. She then underwent a HIDA scan, which did show an ejection fraction of 13%, consistent with biliary dyskinesia. MEDICAL HISTORY: Peptic ulcer disease, gastroesophageal reflux disease, iron deficiency anemia, vitamin B12 deficiency, Moyer's palsy, basilar migraines. SURGICAL HISTORY: section x2 in 2007, 2010, D and C in 2005, leg vein ablation in 2000, bladder sling in 2018, abdominoplasty in 07/2021. ALLERGIES: No known drug allergies. MEDICATIONS: Estradiol 0.5 mg daily, Nexium 20 mg daily, bupropion. SOCIAL HISTORY: Negative for tobacco smoke. Rare for alcohol. FAMILY HISTORY: Brother, pancreatic cancer. Father, prostate cancer. VITAL SIGNS: Blood pressure is 131/89. Current weight 177 pounds at 5 feet 5 inches. REVIEW OF SYSTEMS: GENERAL: Well-nourished female in no acute distress. She is not experiencing any shortness of breath or difficulty breathing. No chest pain, palpitations or diaphoresis. No nausea or vomiting. She does report intermittent episodes of right upper quadrant abdominal pain. No diarrhea or constipation. No red blood per rectum. No dark tarry stools. She does report reflux as well as bloating. No recent inadvertent weight loss. All other review of systems negative. PHYSICAL EXAMINATION: CHEST: Clear, good breath sounds bilaterally. HEART: Regular, no murmurs. EXTREMITIES: No lower extremity edema. Negative Homans sign. HEENT: No scleral icterus. No cervical lymphadenopathy. ABDOMEN: Soft, nondistended. There is some mild tenderness with deep palpation of the right upper abdominal quadrant. No peritoneal signs. No organomegaly. SKIN: Warm, dry and pink. NEUROLOGIC: Awake, alert and oriented x3. ASSESSMENT AND PLAN: A 52-year-old female with symptomatic biliary dyskinesia. At this time, the risks and benefits of the procedure as well as the procedure at home care instructions were explained to the patient. She verbalized understanding of instructions and agrees to proceed as planned. At this time, we will proceed with scheduling her for a laparoscopic cholecystectomy. Job ID: [id number] DocumentID: [id number] Dictated Date: 07/25/2022 15:35:06 Plastic Parts Designer Date: 07/25/2022 18:23:00 Dictated By: MIKY ASHBY APRN
[2022-08-02] VITALS (11 sets, daily range): BP systolic 115–142; BP diastolic 80–99
[~2022-08-02] VITALS: Ht 165.1 cm; Wt 78.0 kg
[~2022-08-02 10:02] MED LIST changes: +BUPR300T43 PO; +ESOM20CA PO; +NF-VITD400 PO; +PSYL0.526 PO
[2022-08-02] MEDS ORDERED: morphine INJ 10 MG/ML 1ML (SYR OR VIAL) IVP PRN (10:15)
[2022-08-02] MEDS ORDERED: ONDANSETRON 4 MG/2 ML (SDV) Z0FRAN IVP PRN ×2 (10:15→12:45)
[2022-08-02] MEDS ORDERED: HYDROcodone/APAP 5 MG/325 MG (LORTAB) TAB PO ONE (10:15)
[2022-08-02] MEDS ORDERED: ceFAZolin INJECTION 2,000 MG in NS (IVPB) 50 ML IV ONE (10:15)
[2022-08-02] MEDS ORDERED: ACETAMINOPHEN 325 MG TABLET PO PRN (10:15)
[2022-08-02] MEDS ORDERED: LACTATED RINGERS 1,000 ML IV PRN (10:15)
[2022-08-02] MEDS ORDERED: HYDR-3817 PO (10:16)
--- NOTE | 2022-08-02 10:17 | Progress Note-Pre Operative ---
Pre-Operative Progress Note Date H&P Reviewed: Aug 02, 2022 Time H&P Reviewed: 10:15 History & Physical: H&P Reviewed, Patient Examed, No changes noted Pre-Operative Diagnosis: Biliary Dyskinesia MIKY ASHBY APRN Aug 02, 2022 10:17
--- NOTE | 2022-08-02 10:17 | Discharge Inst-Surgical ---
D/C Lap Instructions-KIDO Reconcile Patient Problems Problems Reviewed?: Yes New, Converted, or Re-Newed RX: RX on Chart Follow Up Appt in 2 weeks Activity as tolerated No driving for 24 hours No driving while on pain medications Incentive Spirometry use every 2 hours while awake Regular Diet Symptoms to Report: Fever over 101 degree F, Nausea/Vomiting Infection Signs and Symptoms to report: Increased redness, Foul odor of wound, Increased drainage Bathing instructions: May shower Operative Area Clean/Dry; Keep incision clean/dry If any problems/questions: Contact your physician or go to Emergency Room MIKY ASHBY APRN Aug 02, 2022 10:17
[2022-08-02] MEDS ORDERED: BUP/EPI 0.25% 1:200,000 (MARCAINE) 30 ML VIAL ONE (10:27)
[2022-08-02] MEDS ORDERED: MIDAZOLAM 2 MG/2 ML (VERSED) VIAL ONE (11:13)
[2022-08-02] MEDS ORDERED: fentaNYL INJ 100 MCG/2 ML AMP ONE ×2 (11:13→12:52)
[2022-08-02] MEDS ORDERED: ROCURONIUM 10 MG/ML 5 ML SYRINGE IV ONE (12:27)
--- NOTE | 2022-08-02 12:27 | Progress Note-Post Operative ---
Post-Operative Progess Note Surgeon (s)/Filer Helper (s) Surgeon KALEB FLORES MD Filer Helper: david vilchis [employer] BOSS Pre-Operative Diagnosis Biliary Dyskinesia Post-Operative Diagnosis same Procedure & Operative Findings Date of Procedure 08/02/22 Procedure Performed/Findings laparoscopic cholecystectomy Anesthesia Type get Estimated Blood Loss Estimated blood loss (mL): minimal Specimens/Packing Specimens Removed gallbladder KALEB FLORES MD Aug 02, 2022 12:27
[2022-08-02] MEDS ORDERED: proPOfol 200 MG/20 ML (DIPRIVAN) VIAL IV ONE (12:28)
--- NOTE | 2022-08-02 12:41 | Anesthesia-General Post-Op ---
General Patient Condition Mental Status/LOC: Same as Preop Cardiovascular: Satisfactory Nausea/Vomiting: Absent Respiratory: Satisfactory Pain: Controlled Complications: Absent Post Op Complications Complications None Follow Up Care/Instructions Patient Instructions None needed. Anesthesia/Patient Condition Patient Condition Patient is doing well, no complaints, stable vital signs, no apparent adverse anesthesia problems. No complications reported per nursing. YURY KELLY CRNA Aug 02, 2022 12:41
[2022-08-02] MEDS ORDERED: HYDROmorphone 2 MG/ML VIAL (DILAUDID) IV ONE (12:45)
[2022-08-02] MEDS ORDERED: fentaNYL INJ 100 MCG/2 ML AMP IVP ONE (12:45)
[2022-08-02] MEDS ORDERED: HYDROmorphone 2 MG/ML VIAL (DILAUDID) ONE (13:06)
--- NOTE | 2022-08-02 16:44 | OPERATIVE REPORT ---
DATE OF SERVICE: 08/02/2022 ATTENDING PRIMARY CARE PHYSICIAN: Jessica Mccloud MD PREOPERATIVE DIAGNOSIS: Symptomatic biliary dyskinesia. POSTOPERATIVE DIAGNOSIS: Symptomatic biliary dyskinesia. PROCEDURE: Laparoscopic cholecystectomy. SURGEON: Kaleb Flores MD MEDIA LIBRARIAN: Artem Kauffman APRN ANESTHESIA: General endotracheal. ESTIMATED BLOOD LOSS: Minimal. FINDINGS: Distended gallbladder, no gallbladder wall thickening, gallbladder cholesterolosis. DISPOSITION: The patient tolerated the procedure well. INDICATIONS: The patient is a 52-year-old female known to us. We had seen her for anemia and vitamin B12 deficiency and had done an EGD on her on 04/10/2019 where she was found to have reflux esophagitis grade B, moderate size hiatal hernia 3 cm in size as well as mild gastritis. She reports that she has had pain in the right upper abdominal quadrant as well as bloating sensation as well as worsening reflux. She did have an abdominoplasty on 08/01/2021 and had reported that the recommendation was to wait for 1 year for any type of abdominal surgery. She did undergo an ultrasound, which was negative and then a HIDA scan was performed, which did show a low ejection fraction of 13%, consistent with a biliary dyskinesia. DESCRIPTION OF PROCEDURE: The patient was brought to the operating room, laid supine on the table. After adequate IV pain and sedative medications and general endotracheal intubation, the abdomen was prepped and draped in standard surgical fashion. 0.5% Marcaine with epinephrine was then used to anesthetize the overlying skin in the left upper abdominal quadrant and a transverse skin incision was made using a #15 blade. An 0 silk suture was applied to the medial aspect of the incision for retraction and a Veress needle inserted with the low opening pressure of 0 mmHg. The abdomen was then insufflated to 15 mmHg pressure. The Veress needle removed and a 5 mm XL trocar was placed followed by a 5 mm 45-degree angle laparoscope visualized the peritoneal cavity. A 4-quadrant abdominal exploration was performed. There was a slightly distended gallbladder. No gallbladder wall inflammation. Under direct visualization, we then proceeded to place a supraumbilical 10 mm port after the skin and peritoneal lining were anesthetized using 0.5% Marcaine with epinephrine and a transverse skin incision made using a #15 blade. In a similar manner, a right upper abdominal quadrant 5 mm port was placed. The patient was then placed in reverse Trendelenburg position as well as plain right side up, left side down. The fundus of the gallbladder was then retracted anteriorly and superiorly. The patient was placed in reverse Trendelenburg position as well as plain right side up, left side down. The hepatoduodenal ligament was then dissected with blunt dissection as well as electrocautery using the hook instrument as well as a [place] dissector. The critical view of safety was identified including the triangle of Calot as well as the cystic duct and artery as the only two structures going into the gallbladder as well as the cystic plate behind the proximal gallbladder. A timeout was then taken and the cystic duct and artery were then clipped proximally and distally and cut with EndoShears. The gallbladder was then dissected off of the liver bed using cautery and the hook instrument with visualization hemostasis as well as no leaking ducts of Luschka. The gallbladder was then dissected off of the liver bed using cautery on the hook instrument with visualization and good hemostasis as well as no leaking ducts of L[place]chka. The gallbladder was removed through the 10 mm port site using an EndoCatch bag. The 10 mm port site fascia and peritoneum were then closed under direct visualization using a Luís-Jm device and an 0 Vicryl suture. The abdomen was then desufflated and remaining ports were removed. All skin incisions were closed using 4-0 Monocryl running subcuticular sutures. Wounds were then cleaned and covered with Dermabond. The patient tolerated the procedure well. POSTOPERATIVE PLAN: We will start IV and oral pain medications as well as a clear liquid diet. Once she is tolerating clears with good pain control with oral pain medications, ambulating well, we will discharge her home. She will be instructed to no heavy lifting or exertion for the next 2 weeks. Job ID: [id number] DocumentID: [id number] Dictated Date: 08/02/2022 12:34:47 Business Account Executive Date: 08/02/2022 16:42:00 Dictated By: KALEB FLORES MD
== END 2022-08-02 14:36 | disposition home or self-care (01) ==
LOC: SDC 10:02
PROVIDERS: ATTEND Surgery
DX: K81.1 Chronic cholecystitis (principal)
CPT/HCPCS: 84703; 87081

== ENCOUNTER → 2023-03-07 | Outpatient (CLI) | payer BC ==
[~2023-03-07] MED LIST changes: +HYDR-3817 PO; +NEBI2.5T2 PO; -NEBI2.5T5 PO
--- NOTE | 2023-03-08 13:14 | Diagnostic Imaging Report ---
Indication bilateral digital 2-D and 3-D screening with CAD. The current study was also evaluated with a Computer Aided Detection (CAD) system. COMPARISON: 03/02, 01/30 and 01/2020 FINDINGS: density 2 No mass, spiculated lesion, suspicious calcifications or changes to suggest malignancy. IMPRESSION: BI-RADS Category 1 ACR BI-RADS Category 1: Negative. Result letter will be mailed to the patient. Note: At least 10% of breast cancer is not imaged by mammography. Dictated by: Dictated on workstation # [id number]
== END ==
LOC: RAD 15:15
PROVIDERS: ATTEND Nurse Practitioner
DX: Z12.31 Encounter for screening mammogram for malignant neoplasm of breast (principal)
CPT/HCPCS: 77063; 77067